=== PATIENT | male | born 1950 | race African-American/Black ===

== ENCOUNTER 2019-11-21 16:50 | Emergency (ER) | payer MEDICARE, OTHER ==
[~2019-11-21] VITALS: Ht 182.9 cm; Wt 54.4 kg
[2019-11-21 17:18] VITALS: BP 140/85
[2019-11-21] MEDS ORDERED: ACETAMINOPHEN 325 MG TAB PO ONE (17:45)
== END 2019-11-21 18:37 | disposition home or self-care (01) ==
LOC: EDBD 16:50 → ER 16:50
DX: R51 Headache (principal); I50.9 Heart failure, unspecified

== ENCOUNTER 2021-04-27 01:39 | Inpatient (IN) | payer MEDICARE, OTHER ==
[~2021-04-27] VITALS: Ht 190.5 cm; Wt 100.5 kg
[2021-04-27 02:34] LABS: Basophils # (auto) 0 10 ^3/uL (0-0.2); Basophils % (auto) 0.4 % (0.0-2.0); Eosinophils # (auto) 0 10 ^3/uL (0-0.8); Hematocrit 40.5 % (41.0-53.0); Hemoglobin 13.8 g/dL (13.5-17.5); Lymphocytes # (auto) 0.4 10 ^3/uL (0.4-5.4); Lymphocytes % (auto) 8.6 % (10.0-50.0); Mean Corpuscular Hemoglobin 29.1 pg (28.0-32.0); Mean Corpuscular Hgb Conc. 34.1 g/dL (32.0-36.0); Mean Corpuscular Volume 85.4 fL (80.0-100.0); Monocytes # (auto) 0.2 10 ^3/uL (0-1.3); Monocytes % (auto) 4.3 % (0.0-12.0); Neutrophils # (auto) 3.9 10 ^3/uL (1.6-8.6); Neutrophils % (auto) 86.7 % (37.0-80.0); Nucleated Red Blood Cells % 0.1 %; Red Blood Cells 4.74 10^6/uL (4.5-5.90); Red Cell Distribution Width 14.2 % (11.8-14.3); White Blood Cell 4.5 10^3/uL (4.4-10.8)
[2021-04-27 02:50] LABS: INR 1.37 (0.9-1.15); Partial Thromboplastin Time 29.9 sec (23.6-33.0)
[2021-04-27 02:52] LABS: Alanine Aminotransferase 61 U/L (16-61); Albumin 2.9 g/dL (3.4-5.0); Anion Gap 10 (5-15); Aspartate Aminotransferase 99 U/L (15-37); BUN/Creatinine Ratio 11.9; Blood Urea Nitrogen 19 mg/dL (7-18); Calcium 8.5 mg/dL (8.5-10.1); Carbon Dioxide 25 mmol/L (21-32); Chloride 103 mmol/L (98-107); GFR African American 56 mL/min; GFR Non-African American 46 mL/min; Glucose 163 mg/dL (74-106); Potassium 3.3 mmol/L (3.5-5.1); Sodium 138 mmol/L (136-145)
[2021-04-27 02:57] LABS: Alkaline Phosphatase 95 U/L (45-117); Bilirubin, Total 0.7 mg/dL (0.2-1.0); Total Protein 8.1 g/dL (6.4-8.2)
[2021-04-27 09:39] LABS: Urine Bacteria NONE SEEN /hpf (None Seen); Urine Blood 2+ /uL (Negative); Urine Hyaline Cast MOD /lpf (0 - 2); Urine Mucus FEW (None Seen); Urine Specific Gravity 1.024 (1.001-1.035); Urine WBC 7 /hpf (0 - 3)
[2021-04-27] MEDS ORDERED: ZINC SULFATE 220mg CAP or TAB PO ONE (11:15)
[2021-04-27] MEDS ORDERED: ASCORBIC ACID 500 MG TAB PO ONE (11:15)
[2021-04-27] MEDS ORDERED: cefTRIAXone 1GM/50ML D5W 50 ML IV ONE (11:15)
[2021-04-27] MEDS ORDERED: AZITHROMYCIN 500MG/ 250ML 250 ML IV ONE (11:15)
[2021-04-27] MEDS ORDERED: CHOLECALCIFEROL (VITD3) 2,000 UNIT CAP/TAB PO ONE (11:15)
[2021-04-27] MEDS ORDERED: DexAMETHasone SOD PHOS 10MG/1ML VIAL INJ IV ONE (11:15)
[2021-04-27] MEDS ORDERED: REMDESIVIR PER PHARMACY 0 ML IV SCH (11:30)
[2021-04-27] MEDS ORDERED: NITROGLYCERIN 0.4 MG SL TAB SL PRN (11:30)
[2021-04-27] MEDS ORDERED: diphenhdrAMINE HCL 50 MG/1 ML VL IV PRN (11:30)
[2021-04-27] MEDS ORDERED: MORPHINE SULFATE INJECTION 2 MG/ML SYRG IV PRN (11:30)
[2021-04-27] MEDS ORDERED: TEMAZEPAM 15 MG CAP PO PRN (11:45)
[2021-04-27] MEDS ORDERED: DEXTROSE (50%) 50ML SYRG IV PRN (11:45)
[2021-04-27] MEDS: ONDANSETRON HCL 4 MG/2 ML VIAL IV PRN (12:28)
[2021-04-27] MEDS: SODIUM CHLORIDE 0.9% 1,000 ML IV SCH (12:29)
[2021-04-27 13:20] VITALS: BP 108/61
[2021-04-27] MEDS ORDERED: METF-370 PO (13:59)
[2021-04-27] MEDS ORDERED: LORA0.5T20 PO (13:59)
[2021-04-27] MEDS ORDERED: TRAZ50TA2 PO (13:59)
[2021-04-27] MEDS ORDERED: METO25TA93 PO (13:59)
[2021-04-27] MEDS ORDERED: ALBU0.084 NEB (13:59)
[2021-04-27] MEDS ORDERED: DOCU100T15 PO (13:59)
[2021-04-27] MEDS ORDERED: LISI-275 PO (13:59)
[2021-04-27] MEDS ORDERED: REMDESIVIR 200 MG in NS 210ml LOADING DOSE ADULT IV ONE (15:00)
[2021-04-27 15:13] VITALS: BP 108/61
[2021-04-27 17:00] VITALS: BP 114/65
[2021-04-27] MEDS: InsuLIN REG 1unit/0.01ml Soln (100units/ml) SC SCH ×2 (17:37→22:10)
[2021-04-27] MEDS: ACCU-CHEK COMFORT CURVE STRIP VI SCH ×2 (17:39→22:01)
[2021-04-27] MEDS ORDERED: AMIODARONE HCL 150 MG in D5W 5% 100 ML IV ONE (18:15)
[2021-04-27] MEDS ORDERED: AMIODARONE 450mg/250ml AE 250 ML IV SCH (18:15)
[2021-04-27] MEDS: ALBUTEROL SULF HFA 90MCG INH 200DOSE IN PRN (21:34)
[2021-04-27] MEDS: BUDESONIDE (INHALATION) 180 MCG IH IN SCH (21:34)
[2021-04-27] MEDS ORDERED: FLORASTOR (S. BOULARDII) 250 MG CAP PO SCH (22:00)
[2021-04-27 22:11] VITALS: BP 112/73
[2021-04-27] MEDS: ENOXAPARIN SOD 40 MG/0.4 ML SYRINGE SC SCH (22:15)
[2021-04-27 22:58] VITALS: BP 116/64
[2021-04-27 23:24] VITALS: BP 115/72
[2021-04-28] VITALS (7 sets, daily range): BP systolic 100–119; BP diastolic 44–73
[2021-04-28] MEDS ORDERED: AMIODARONE 450mg/250ml AE 250 ML IV SCH (00:15)
[2021-04-28] MEDS: SODIUM CHLORIDE 0.9% 1,000 ML IV SCH (01:50)
[2021-04-28] MEDS: AMIODARONE 450mg/250ml AE 250 ML IV SCH ×2 (04:17→20:05)
[2021-04-28 05:51] LABS: Basophils # (auto) 0 10 ^3/uL (0-0.2); Basophils % (auto) 0.1 % (0.0-2.0); Eosinophils # (auto) 0 10 ^3/uL (0-0.8); Hematocrit 37.5 % (41.0-53.0); Lymphocytes # (auto) 0.5 10 ^3/uL (0.4-5.4); Lymphocytes % (auto) 12.3 % (10.0-50.0); Mean Corpuscular Hemoglobin 29.5 pg (28.0-32.0); Mean Corpuscular Hgb Conc. 34.7 g/dL (32.0-36.0); Mean Corpuscular Volume 85.3 fL (80.0-100.0); Monocytes # (auto) 0.2 10 ^3/uL (0-1.3); Monocytes % (auto) 5.1 % (0.0-12.0); Neutrophils # (auto) 3.2 10 ^3/uL (1.6-8.6); Neutrophils % (auto) 82.5 % (37.0-80.0); Red Cell Distribution Width 14.3 % (11.8-14.3); White Blood Cell 3.9 10^3/uL (4.4-10.8)
[2021-04-28 06:20] LABS: Albumin 2.4 g/dL (3.4-5.0); BUN/Creatinine Ratio 17.5; Calcium 8.8 mg/dL (8.5-10.1); Potassium 3.6 mmol/L (3.5-5.1)
[2021-04-28] MEDS: ACCU-CHEK COMFORT CURVE STRIP VI SCH ×4 (06:26→21:48)
[2021-04-28] MEDS: InsuLIN REG 1unit/0.01ml Soln (100units/ml) SC SCH ×4 (06:26→21:48)
[2021-04-28 06:32] LABS: Bilirubin, Total 0.5 mg/dL (0.2-1.0); Total Protein 7.5 g/dL (6.4-8.2)
[2021-04-28] MEDS: BUDESONIDE (INHALATION) 180 MCG IH IN SCH ×2 (06:38→20:31)
[2021-04-28] MEDS: ALBUTEROL SULF HFA 90MCG INH 200DOSE IN PRN (06:38)
[2021-04-28] MEDS: ASCORBIC ACID 1,000 MG TAB PO SCH (10:00)
[2021-04-28] MEDS: ZINC SULFATE 220mg CAP or TAB PO SCH (10:00)
[2021-04-28] MEDS: CHOLECALCIFEROL (VITD3) 2,000 UNIT CAP/TAB PO SCH (10:00)
[2021-04-28] MEDS: IVERMECTIN 3 MG TAB PO SCH (10:00)
[2021-04-28] MEDS: DexAMETHasone SOD PHOS 10MG/1ML VIAL INJ IV SCH (10:11)
[2021-04-28] MEDS: cefTRIAXone 1GM/50ML D5W 50 ML IV SCH (10:11)
[2021-04-28] MEDS: ENOXAPARIN SOD 40 MG/0.4 ML SYRINGE SC SCH ×2 (10:14→21:48)
[2021-04-28] MEDS: AZITHROMYCIN 500MG/ 250ML 250 ML IV SCH (11:42)
[2021-04-28] MEDS ORDERED: FUROSEMIDE 40 MG/4 ML VIAL IV ONE (11:45)
[2021-04-28] MEDS ORDERED: POTASSIUM CHLORIDE 20 MEQ, LIDOCAINE 1% (LOCAL ANESTH.) 2 ML in SODIUM CHL 0.9% 100 ML IV ONE (11:45)
[2021-04-28] MEDS ORDERED: FUROSEMIDE 20 MG/2 ML VIAL IV ONE (12:45)
[2021-04-28] MEDS: LORazepam 2MG/ML-1ML VIAL IV PRN (15:50)
[2021-04-28] MEDS: REMDESIVIR 100mg 100 MG in SODIUM CHL 0.9% 230 ML IV SCH (16:21)
[2021-04-28 19:21] LABS: Amphetamine Screen, Urine NEGATIVE (NEGATIVE); Barbiturate Scree,Urine NEGATIVE (NEGATIVE); Benzodiazephine Screen, Urine NEGATIVE (NEGATIVE); Cannabinoid Screen, Urine NEGATIVE (NEGATIVE); Cocaine Screen, Urine NEGATIVE (NEGATIVE); Opiate Scree,Urine NEGATIVE (NEGATIVE); Phencyclidine Screen, Urine NEGATIVE (NEGATIVE)
[2021-04-29 05:00] VITALS: BP 114/72
[2021-04-29] MEDS: InsuLIN REG 1unit/0.01ml Soln (100units/ml) SC SCH ×4 (06:16→21:31)
[2021-04-29] MEDS: ACCU-CHEK COMFORT CURVE STRIP VI SCH ×4 (06:17→21:31)
[2021-04-29] MEDS: ALBUTEROL SULF HFA 90MCG INH 200DOSE IN PRN ×2 (06:42→21:22)
[2021-04-29] MEDS: BUDESONIDE (INHALATION) 180 MCG IH IN SCH ×2 (06:42→21:22)
[2021-04-29 07:11] LABS: Potassium 3.5 mmol/L (3.5-5.1)
[2021-04-29 07:16] LABS: Albumin 2.6 g/dL (3.4-5.0); BUN/Creatinine Ratio 21.9; Calcium 9.1 mg/dL (8.5-10.1)
[2021-04-29 07:21] LABS: Bilirubin, Total 0.6 mg/dL (0.2-1.0); Total Protein 7.9 g/dL (6.4-8.2)
[2021-04-29] MEDS: ONDANSETRON HCL 4 MG/2 ML VIAL IV PRN (07:31)
[2021-04-29 09:00] VITALS: BP 117/84
[2021-04-29] MEDS: cefTRIAXone 1GM/50ML D5W 50 ML IV SCH (09:51)
[2021-04-29] MEDS: FUROSEMIDE 20 MG/2 ML VIAL IV SCH (09:52)
[2021-04-29] MEDS: ZINC SULFATE 220mg CAP or TAB PO SCH (10:00)
[2021-04-29] MEDS: ASCORBIC ACID 1,000 MG TAB PO SCH (10:00)
[2021-04-29] MEDS: CHOLECALCIFEROL (VITD3) 2,000 UNIT CAP/TAB PO SCH (10:00)
[2021-04-29] MEDS ORDERED: POTASSIUM CHL 10 Meq TABLET PO SCH (10:00)
[2021-04-29] MEDS: IVERMECTIN 3 MG TAB PO SCH (10:00)
[2021-04-29] MEDS ORDERED: AMIODARONE HCL 200 MG TAB PO ONE (10:30)
[2021-04-29] MEDS: DexAMETHasone SOD PHOS 10MG/1ML VIAL INJ IV SCH (11:09)
[2021-04-29] MEDS: AZITHROMYCIN 500MG/ 250ML 250 ML IV SCH (11:09)
[2021-04-29 13:00] VITALS: BP 138/71
[2021-04-29] MEDS: REMDESIVIR 100mg 100 MG in SODIUM CHL 0.9% 230 ML IV SCH (15:17)
[2021-04-29 16:57] VITALS: BP 121/67
[2021-04-29] MEDS: AMIODARONE HCL 200 MG TAB PO SCH (21:27)
[2021-04-29] MEDS: traZODone HCL 50 MG TAB PO SCH (21:30)
[2021-04-29] MEDS: CARVEDILOL 3.125 MG TAB PO SCH (21:30)
[2021-04-29] MEDS: APIXABAN 5 MG TAB PO SCH (21:31)
[2021-04-29 22:00] VITALS: BP 125/65
[2021-04-30] MEDS: LORazepam 2MG/ML-1ML VIAL IV PRN ×2 (01:42→21:43)
[2021-04-30 05:00] VITALS: BP 139/68
[2021-04-30 06:21] LABS: Albumin 2.6 g/dL (3.4-5.0); Calcium 8.6 mg/dL (8.5-10.1); Potassium 3.3 mmol/L (3.5-5.1)
[2021-04-30 06:23] LABS: BUN/Creatinine Ratio 21.1
[2021-04-30] MEDS: ALBUTEROL SULF HFA 90MCG INH 200DOSE IN PRN ×2 (06:23→21:30)
[2021-04-30] MEDS: BUDESONIDE (INHALATION) 180 MCG IH IN SCH ×2 (06:23→21:29)
[2021-04-30 06:26] LABS: Bilirubin, Total 0.7 mg/dL (0.2-1.0); Total Protein 7.9 g/dL (6.4-8.2)
[2021-04-30] MEDS: InsuLIN REG 1unit/0.01ml Soln (100units/ml) SC SCH ×4 (06:44→21:39)
[2021-04-30] MEDS: ACCU-CHEK COMFORT CURVE STRIP VI SCH ×4 (06:44→21:37)
[2021-04-30 09:00] VITALS: BP 133/54
[2021-04-30] MEDS: cefTRIAXone 1GM/50ML D5W 50 ML IV SCH (09:56)
[2021-04-30] MEDS: AZITHROMYCIN 500MG/ 250ML 250 ML IV SCH (09:56)
[2021-04-30] MEDS: DexAMETHasone SOD PHOS 10MG/1ML VIAL INJ IV SCH (09:56)
[2021-04-30] MEDS: POTASSIUM CHL 20 Meq TABLET PO SCH (09:57)
[2021-04-30] MEDS: CHOLECALCIFEROL (VITD3) 2,000 UNIT CAP/TAB PO SCH (09:57)
[2021-04-30] MEDS: APIXABAN 5 MG TAB PO SCH ×2 (09:57→21:36)
[2021-04-30] MEDS: IVERMECTIN 3 MG TAB PO SCH (09:57)
[2021-04-30] MEDS: AMIODARONE HCL 200 MG TAB PO SCH ×2 (09:57→21:37)
[2021-04-30] MEDS: ZINC SULFATE 220mg CAP or TAB PO SCH (09:57)
[2021-04-30] MEDS: ASCORBIC ACID 1,000 MG TAB PO SCH (09:57)
[2021-04-30] MEDS: CARVEDILOL 3.125 MG TAB PO SCH ×2 (10:00→21:37)
[2021-04-30] MEDS: FUROSEMIDE 20 MG/2 ML VIAL IV SCH (10:00)
[2021-04-30] MEDS: LISINOPRIL 5 MG TAB PO SCH (10:00)
[2021-04-30 13:00] VITALS: BP 124/74
[2021-04-30] MEDS: REMDESIVIR 100mg 100 MG in SODIUM CHL 0.9% 230 ML IV SCH (15:00)
[2021-04-30] MEDS: Ensure Enlive Strawberry 8oz Bottle PO SCH (16:18)
[2021-04-30] MEDS: Glucerna Carbsteady SHAKE Stawberry 8oz PO SCH (16:51)
[2021-04-30] MEDS: traZODone HCL 50 MG TAB PO SCH (21:37)
[2021-04-30 22:00] VITALS: BP 144/70
[2021-04-30] MEDS ORDERED: TOCILIZUMAB 400 MG in SODIUM CHL 0.9% 80 ML IV SCH (22:00)
[2021-05-01] VITALS (16 sets, daily range): BP systolic 114–155; BP diastolic 53–85
[2021-05-01] MEDS: InsuLIN REG 1unit/0.01ml Soln (100units/ml) SC SCH ×4 (06:29→22:30)
[2021-05-01] MEDS: ACCU-CHEK COMFORT CURVE STRIP VI SCH ×4 (06:30→22:30)
[2021-05-01 06:59] LABS: Potassium 3.6 mmol/L (3.5-5.1)
[2021-05-01 07:20] LABS: Albumin 2.4 g/dL (3.4-5.0); BUN/Creatinine Ratio 24.3; Bilirubin, Total 0.7 mg/dL (0.2-1.0); Calcium 8.6 mg/dL (8.5-10.1); Total Protein 7.5 g/dL (6.4-8.2)
[2021-05-01] MEDS: Glucerna Carbsteady SHAKE Stawberry 8oz PO SCH ×3 (08:00→18:00)
[2021-05-01] MEDS: Ensure Enlive Strawberry 8oz Bottle PO SCH ×3 (08:00→16:20)
[2021-05-01] MEDS: cefTRIAXone 1GM/50ML D5W 50 ML IV SCH (09:11)
[2021-05-01] MEDS: AZITHROMYCIN 500MG/ 250ML 250 ML IV SCH (09:11)
[2021-05-01] MEDS: ZINC SULFATE 220mg CAP or TAB PO SCH (09:11)
[2021-05-01] MEDS: AMIODARONE HCL 200 MG TAB PO SCH ×2 (09:11→22:29)
[2021-05-01] MEDS: DexAMETHasone SOD PHOS 10MG/1ML VIAL INJ IV SCH (09:11)
[2021-05-01] MEDS: BUDESONIDE (INHALATION) 180 MCG IH IN SCH ×2 (09:48→18:09)
[2021-05-01] MEDS: LISINOPRIL 5 MG TAB PO SCH (10:00)
[2021-05-01] MEDS: FUROSEMIDE 40 MG/4 ML VIAL IV SCH (10:00)
[2021-05-01] MEDS: APIXABAN 5 MG TAB PO SCH ×2 (10:00→22:30)
[2021-05-01] MEDS: CHOLECALCIFEROL (VITD3) 2,000 UNIT CAP/TAB PO SCH (10:00)
[2021-05-01] MEDS: ASCORBIC ACID 1,000 MG TAB PO SCH (10:00)
[2021-05-01] MEDS: IVERMECTIN 3 MG TAB PO SCH (10:00)
[2021-05-01] MEDS: POTASSIUM CHL 20 Meq TABLET PO SCH (10:00)
[2021-05-01] MEDS: CARVEDILOL 3.125 MG TAB PO SCH ×2 (10:00→22:29)
[2021-05-01] MEDS: LORazepam 2MG/ML-1ML VIAL IV PRN ×2 (14:27→22:30)
[2021-05-01] MEDS: REMDESIVIR 100mg 100 MG in SODIUM CHL 0.9% 230 ML IV SCH (14:29)
[2021-05-01] MEDS: ALBUTEROL SULF HFA 90MCG INH 200DOSE IN PRN (18:09)
[2021-05-01] MEDS: traZODone HCL 50 MG TAB PO SCH (22:30)
[2021-05-02] VITALS (31 sets, daily range): BP systolic 94–156; BP diastolic 56–97
[2021-05-02 05:43] LABS: BUN/Creatinine Ratio 24.4; Calcium 8.9 mg/dL (8.5-10.1); Potassium 3.8 mmol/L (3.5-5.1)
[2021-05-02] MEDS: ALBUTEROL SULF HFA 90MCG INH 200DOSE IN PRN ×2 (06:19→22:38)
[2021-05-02] MEDS: BUDESONIDE (INHALATION) 180 MCG IH IN SCH ×2 (06:20→22:38)
[2021-05-02] MEDS: ACCU-CHEK COMFORT CURVE STRIP VI SCH ×4 (06:25→23:22)
[2021-05-02] MEDS: InsuLIN REG 1unit/0.01ml Soln (100units/ml) SC SCH ×4 (06:37→23:23)
[2021-05-02] MEDS: Glucerna Carbsteady SHAKE Stawberry 8oz PO SCH ×3 (08:00→17:18)
[2021-05-02] MEDS: LISINOPRIL 5 MG TAB PO SCH (10:00)
[2021-05-02] MEDS: CARVEDILOL 3.125 MG TAB PO SCH ×2 (10:00→22:47)
[2021-05-02] MEDS: POTASSIUM CHL 20 Meq TABLET PO SCH (10:00)
[2021-05-02] MEDS: HYDROcodone-ACET 5/325MG TAB PO PRN ×2 (10:30→22:48)
[2021-05-02] MEDS: DexAMETHasone SOD PHOS 10MG/1ML VIAL INJ IV SCH (10:47)
[2021-05-02] MEDS: FUROSEMIDE 40 MG/4 ML VIAL IV SCH (10:48)
[2021-05-02] MEDS: APIXABAN 5 MG TAB PO SCH ×2 (10:48→22:47)
[2021-05-02] MEDS: ZINC SULFATE 220mg CAP or TAB PO SCH (10:48)
[2021-05-02] MEDS: AMIODARONE HCL 200 MG TAB PO SCH ×2 (10:48→22:46)
[2021-05-02] MEDS: ASCORBIC ACID 1,000 MG TAB PO SCH (10:49)
[2021-05-02] MEDS: CHOLECALCIFEROL (VITD3) 2,000 UNIT CAP/TAB PO SCH (10:49)
[2021-05-02] MEDS: cefTRIAXone 1GM/50ML D5W 50 ML IV SCH (11:45)
[2021-05-02] MEDS: AZITHROMYCIN 500MG/ 250ML 250 ML IV SCH (12:58)
[2021-05-02] MEDS: IVERMECTIN 3 MG TAB PO SCH (14:05)
[2021-05-02] MEDS: LORazepam 2MG/ML-1ML VIAL IV PRN (14:51)
[2021-05-02] MEDS ORDERED: TOCILIZUMAB 400 MG in SODIUM CHL 0.9% 80 ML IV ONE (15:00)
[2021-05-02] MEDS: DOCUSATE SOD 100 MG CAP PO SCH (22:46)
[2021-05-02] MEDS: traZODone HCL 50 MG TAB PO SCH (22:47)
[2021-05-03] VITALS (55 sets, daily range): BP systolic 83–148; BP diastolic 53–86
[2021-05-03 06:46] LABS: Basophils # (auto) 0 10 ^3/uL (0-0.2); Basophils % (auto) 0.5 % (0.0-2.0); Eosinophils # (auto) 0 10 ^3/uL (0-0.8); Eosinophils % (auto) 0.1 % (0.0-7.0); Hematocrit 41.3 % (41.0-53.0); Hemoglobin 13.9 g/dL (13.5-17.5); Lymphocytes # (auto) 0.4 10 ^3/uL (0.4-5.4); Lymphocytes % (auto) 5.1 % (10.0-50.0); Mean Corpuscular Hemoglobin 28.9 pg (28.0-32.0); Mean Corpuscular Hgb Conc. 33.7 g/dL (32.0-36.0); Mean Corpuscular Volume 85.6 fL (80.0-100.0); Monocytes # (auto) 0.2 10 ^3/uL (0-1.3); Monocytes % (auto) 1.9 % (0.0-12.0); Neutrophils # (auto) 7.6 10 ^3/uL (1.6-8.6); Neutrophils % (auto) 92.4 % (37.0-80.0); Nucleated Red Blood Cells % 0.1 %; Red Blood Cells 4.82 10^6/uL (4.5-5.90); Red Cell Distribution Width 14.3 % (11.8-14.3); White Blood Cell 8.2 10^3/uL (4.4-10.8)
[2021-05-03 06:51] LABS: Calcium 8.2 mg/dL (8.5-10.1); Potassium 3.9 mmol/L (3.5-5.1)
[2021-05-03] MEDS: InsuLIN REG 1unit/0.01ml Soln (100units/ml) SC SCH ×3 (06:59→17:00)
[2021-05-03] MEDS: ACCU-CHEK COMFORT CURVE STRIP VI SCH ×3 (06:59→17:00)
[2021-05-03 07:00] LABS: BUN/Creatinine Ratio 29.4; CRP High Sensitivity 6.35 mg/dL (< 0.3)
[2021-05-03] MEDS: Glucerna Carbsteady SHAKE Stawberry 8oz PO SCH ×3 (08:00→18:00)
[2021-05-03] MEDS: PROPOFOL 100 ML IV SCH (09:00)
[2021-05-03] MEDS ORDERED: ETOMIDATE (2MG/ML) 20ML VIAL IV ONE ×2 (09:00→09:11)
[2021-05-03] MEDS: cefTRIAXone 1GM/50ML D5W 50 ML IV SCH (09:00)
[2021-05-03] MEDS ORDERED: ROCURONIUM 10MG/ML 10ML VIAL IV ONE ×2 (09:00→09:11)
[2021-05-03] MEDS: DOCUSATE SOD 100 MG CAP PO SCH ×2 (10:00→22:00)
[2021-05-03] MEDS: POTASSIUM CHL 20 Meq TABLET PO SCH (10:00)
[2021-05-03] MEDS: APIXABAN 5 MG TAB PO SCH ×2 (10:00→23:13)
[2021-05-03] MEDS: CHOLECALCIFEROL (VITD3) 2,000 UNIT CAP/TAB PO SCH (10:00)
[2021-05-03] MEDS: ASCORBIC ACID 1,000 MG TAB PO SCH (10:00)
[2021-05-03] MEDS: AMIODARONE HCL 200 MG TAB PO SCH ×2 (10:00→23:11)
[2021-05-03] MEDS: LISINOPRIL 5 MG TAB PO SCH (10:00)
[2021-05-03] MEDS: CARVEDILOL 3.125 MG TAB PO SCH ×2 (10:00→22:00)
[2021-05-03] MEDS ORDERED: TOCILIZUMAB 400 MG in SODIUM CHL 0.9% 80 ML IV ONE (10:00)
[2021-05-03] MEDS: NOREPINEPHRINE 8 MG/250ML KIT 250 ML IV SCH (10:15)
[2021-05-03] MEDS: fentaNYL Drip 2500mCg/250mlNS 250 ML IV SCH ×2 (10:15→20:09)
[2021-05-03] MEDS: MIDAZOLAM DRIP 50 mg/50mL 50 ML IV SCH (10:15)
[2021-05-03] MEDS: FUROSEMIDE 40 MG/4 ML VIAL IV SCH (12:35)
[2021-05-03] MEDS: DexAMETHasone SOD PHOS 10MG/1ML VIAL INJ IV SCH (12:35)
[2021-05-03] MEDS: ZINC SULFATE 220mg CAP or TAB PO SCH (12:36)
[2021-05-03] MEDS: traZODone HCL 50 MG TAB PO SCH (22:00)
[2021-05-04] VITALS (97 sets, daily range): BP systolic 89–181; BP diastolic 61–99
[2021-05-04] MEDS: InsuLIN REG 1unit/0.01ml Soln (100units/ml) SC SCH ×5 (01:04→22:00)
[2021-05-04] MEDS: ACCU-CHEK COMFORT CURVE STRIP VI SCH ×5 (01:05→22:00)
[2021-05-04] MEDS: DOPamine 1600MCG/ML D5W 250 ML IV SCH ×3 (02:06→18:13)
[2021-05-04 06:31] LABS: BUN/Creatinine Ratio 35.4; Calcium 8.3 mg/dL (8.5-10.1); Potassium 4.5 mmol/L (3.5-5.1)
[2021-05-04 06:33] LABS: Basophils # (auto) 0 10 ^3/uL (0-0.2); Basophils % (auto) 0.2 % (0.0-2.0); Eosinophils # (auto) 0 10 ^3/uL (0-0.8); Eosinophils % (auto) 0.1 % (0.0-7.0); Hematocrit 44.7 % (41.0-53.0); Hemoglobin 14.6 g/dL (13.5-17.5); Lymphocytes # (auto) 0.4 10 ^3/uL (0.4-5.4); Lymphocytes % (auto) 5.7 % (10.0-50.0); Mean Corpuscular Hemoglobin 28.1 pg (28.0-32.0); Mean Corpuscular Hgb Conc. 32.7 g/dL (32.0-36.0); Mean Corpuscular Volume 85.9 fL (80.0-100.0); Monocytes # (auto) 0.1 10 ^3/uL (0-1.3); Monocytes % (auto) 1.9 % (0.0-12.0); Neutrophils # (auto) 6.4 10 ^3/uL (1.6-8.6); Neutrophils % (auto) 92.1 % (37.0-80.0); Nucleated Red Blood Cells % 0.1 %; Red Blood Cells 5.21 10^6/uL (4.5-5.90); Red Cell Distribution Width 14.8 % (11.8-14.3)
[2021-05-04] MEDS: Glucerna Carbsteady SHAKE Stawberry 8oz PO SCH ×3 (08:00→16:00)
[2021-05-04] MEDS: MIDAZOLAM DRIP 50 mg/50mL 50 ML IV SCH (08:01)
[2021-05-04] MEDS: PROPOFOL 100 ML IV SCH (09:00)
[2021-05-04] MEDS: NOREPINEPHRINE 8 MG/250ML KIT 250 ML IV SCH (09:00)
[2021-05-04] MEDS: CARVEDILOL 3.125 MG TAB PO SCH ×2 (09:05→22:00)
[2021-05-04] MEDS: LISINOPRIL 5 MG TAB PO SCH (09:06)
[2021-05-04] MEDS: cefTRIAXone 1GM/50ML D5W 50 ML IV SCH (09:15)
[2021-05-04] MEDS: DOCUSATE SOD 100 MG CAP PO SCH (09:15)
[2021-05-04] MEDS: DexAMETHasone SOD PHOS 10MG/1ML VIAL INJ IV SCH (09:52)
[2021-05-04] MEDS: AMIODARONE HCL 200 MG TAB PO SCH ×2 (09:53→22:00)
[2021-05-04] MEDS: APIXABAN 5 MG TAB PO SCH ×2 (09:53→22:00)
[2021-05-04] MEDS: ZINC SULFATE 220mg CAP or TAB PO SCH (09:53)
[2021-05-04] MEDS: FUROSEMIDE 40 MG/4 ML VIAL IV SCH (09:53)
[2021-05-04] MEDS: ASCORBIC ACID 1,000 MG TAB PO SCH (09:54)
[2021-05-04] MEDS: CHOLECALCIFEROL (VITD3) 2,000 UNIT CAP/TAB PO SCH (09:54)
[2021-05-04] MEDS: POTASSIUM CHL 20 Meq TABLET PO SCH (09:54)
[2021-05-04] MEDS: SODIUM CHLORIDE 0.9% 1,000 ML IV SCH (10:32)
[2021-05-04] MEDS: fentaNYL Drip 2500mCg/250mlNS 250 ML IV SCH (11:35)
[2021-05-04] MEDS: traZODone HCL 50 MG TAB PO SCH (22:00)
[2021-05-05] VITALS (95 sets, daily range): BP systolic 105–183; BP diastolic 63–92
[2021-05-05] MEDS: DOCUSATE SOD 100 MG CAP PO SCH ×3 (01:20→19:50)
[2021-05-05] MEDS: SODIUM CHLORIDE 0.9% 1,000 ML IV SCH (01:24)
[2021-05-05] MEDS: DOPamine 1600MCG/ML D5W 250 ML IV SCH ×3 (01:59→17:48)
[2021-05-05] MEDS: fentaNYL Drip 2500mCg/250mlNS 250 ML IV SCH (02:02)
[2021-05-05 06:36] LABS: Hematocrit 44.4 % (41.0-53.0); Mean Corpuscular Hemoglobin 29.4 pg (28.0-32.0); Mean Corpuscular Hgb Conc. 33.8 g/dL (32.0-36.0); Mean Corpuscular Volume 86.8 fL (80.0-100.0); Red Blood Cells 5.11 10^6/uL (4.5-5.90); Red Cell Distribution Width 14.7 % (11.8-14.3); White Blood Cell 8.3 10^3/uL (4.4-10.8)
[2021-05-05 06:51] LABS: Potassium 4.6 mmol/L (3.5-5.1)
[2021-05-05 06:57] LABS: Band Neutrophils % (manual) 0; Basophils % (manual) 0 (0.0-2.0); Blast Cells 0; Eosinophils % (manual) 0 (0-7); Metamyelocytes % 0; Monocytes % (manual) 0 (0-12); Myelocytes % 0; Promyelocytes % 0; Reactive Lymphocytes 0
[2021-05-05 07:06] LABS: Albumin 2.4 g/dL (3.4-5.0); BUN/Creatinine Ratio 33.3; Bilirubin, Total 0.5 mg/dL (0.2-1.0); Calcium 8.1 mg/dL (8.5-10.1); Total Protein 7.1 g/dL (6.4-8.2)
[2021-05-05] MEDS: ACCU-CHEK COMFORT CURVE STRIP VI SCH ×4 (07:43→23:32)
[2021-05-05] MEDS: InsuLIN REG 1unit/0.01ml Soln (100units/ml) SC SCH ×4 (07:44→23:34)
[2021-05-05] MEDS: Glucerna Carbsteady SHAKE Stawberry 8oz PO SCH ×2 (08:00→10:08)
[2021-05-05 08:43] LABS: Lymphocytes % (manual) 4 (10.0-50.0)
[2021-05-05] MEDS: NOREPINEPHRINE 8 MG/250ML KIT 250 ML IV SCH (09:00)
[2021-05-05] MEDS: PROPOFOL 100 ML IV SCH (09:00)
[2021-05-05] MEDS: MIDAZOLAM DRIP 50 mg/50mL 50 ML IV SCH (09:08)
[2021-05-05] MEDS: CARVEDILOL 3.125 MG TAB PO SCH (09:12)
[2021-05-05] MEDS: LISINOPRIL 5 MG TAB PO SCH (09:12)
[2021-05-05] MEDS: AMIODARONE HCL 200 MG TAB PO SCH (09:12)
[2021-05-05] MEDS ORDERED: POTASSIUM EFFERVESENT TAB 25 MEQ GT SCH (10:00)
[2021-05-05] MEDS: cefTRIAXone 1GM/50ML D5W 50 ML IV SCH (10:05)
[2021-05-05] MEDS: ASCORBIC ACID 1,000 MG TAB PO SCH (10:06)
[2021-05-05] MEDS: CHOLECALCIFEROL (VITD3) 2,000 UNIT CAP/TAB PO SCH (10:06)
[2021-05-05] MEDS: DexAMETHasone SOD PHOS 10MG/1ML VIAL INJ IV SCH (10:06)
[2021-05-05] MEDS: APIXABAN 5 MG TAB PO SCH ×2 (10:06→22:00)
[2021-05-05] MEDS: ZINC SULFATE 220mg CAP or TAB PO SCH (10:06)
[2021-05-05] MEDS: Glucerna 1.2 Cal 1Liter BOTTLE GT SCH (17:47)
[2021-05-05] MEDS: traZODone HCL 50 MG TAB PO SCH (22:00)
[2021-05-06] VITALS (100 sets, daily range): BP systolic 84–157; BP diastolic 51–97
[2021-05-06] MEDS: DOPamine 1600MCG/ML D5W 250 ML IV SCH ×2 (02:00→10:10)
[2021-05-06] MEDS: InsuLIN REG 1unit/0.01ml Soln (100units/ml) SC SCH ×4 (06:00→23:17)
[2021-05-06] MEDS: ACCU-CHEK COMFORT CURVE STRIP VI SCH ×4 (06:00→23:15)
[2021-05-06] MEDS: fentaNYL Drip 2500mCg/250mlNS 250 ML IV SCH ×2 (06:51→16:43)
[2021-05-06] MEDS: MIDAZOLAM DRIP 50 mg/50mL 50 ML IV SCH ×3 (06:51→14:04)
[2021-05-06] MEDS: NOREPINEPHRINE 8 MG/250ML KIT 250 ML IV SCH (08:51)
[2021-05-06] MEDS: PROPOFOL 100 ML IV SCH (08:51)
[2021-05-06] MEDS: ZINC SULFATE 220mg CAP or TAB PO SCH (09:22)
[2021-05-06] MEDS: CHOLECALCIFEROL (VITD3) 2,000 UNIT CAP/TAB PO SCH (09:22)
[2021-05-06] MEDS: DexAMETHasone SOD PHOS 10MG/1ML VIAL INJ IV SCH (09:23)
[2021-05-06] MEDS: DOCUSATE SOD 100 MG CAP PO SCH ×2 (09:23→19:32)
[2021-05-06] MEDS: APIXABAN 5 MG TAB PO SCH ×2 (09:23→20:54)
[2021-05-06] MEDS: ASCORBIC ACID 1,000 MG TAB PO SCH (09:23)
[2021-05-06] MEDS ORDERED: METOCLOPRAMIDE HCL 5MG/ml INJ 2ml VIAL ONE (13:56)
[2021-05-06] MEDS: METOCLOPRAMIDE HCL 5MG/ml INJ 2ml VIAL IV SCH ×2 (14:00→20:54)
[2021-05-06] MEDS: traZODone HCL 50 MG TAB PO SCH (20:54)
[2021-05-07] VITALS (98 sets, daily range): BP systolic 89–151; BP diastolic 37–80
[2021-05-07 05:15] LABS: Basophils # (auto) 0 10 ^3/uL (0-0.2); Basophils % (auto) 0.3 % (0.0-2.0); Eosinophils # (auto) 0 10 ^3/uL (0-0.8); Eosinophils % (auto) 0.1 % (0.0-7.0); Hematocrit 43.8 % (41.0-53.0); Hemoglobin 14.4 g/dL (13.5-17.5); Lymphocytes # (auto) 0.3 10 ^3/uL (0.4-5.4); Lymphocytes % (auto) 4.6 % (10.0-50.0); Mean Corpuscular Hemoglobin 28.2 pg (28.0-32.0); Mean Corpuscular Hgb Conc. 32.9 g/dL (32.0-36.0); Mean Corpuscular Volume 85.7 fL (80.0-100.0); Monocytes # (auto) 0.2 10 ^3/uL (0-1.3); Monocytes % (auto) 3.1 % (0.0-12.0); Neutrophils # (auto) 6.5 10 ^3/uL (1.6-8.6); Neutrophils % (auto) 91.9 % (37.0-80.0); Nucleated Red Blood Cells % 0.1 %; Red Blood Cells 5.11 10^6/uL (4.5-5.90); Red Cell Distribution Width 14.4 % (11.8-14.3); White Blood Cell 7.1 10^3/uL (4.4-10.8)
[2021-05-07] MEDS: ACCU-CHEK COMFORT CURVE STRIP VI SCH ×4 (05:39→23:11)
[2021-05-07 05:40] LABS: BUN/Creatinine Ratio 38.9; Calcium 8.1 mg/dL (8.5-10.1); Potassium 4.8 mmol/L (3.5-5.1)
[2021-05-07] MEDS: InsuLIN REG 1unit/0.01ml Soln (100units/ml) SC SCH ×4 (06:03→23:25)
[2021-05-07] MEDS: fentaNYL Drip 2500mCg/250mlNS 250 ML IV SCH ×2 (06:04→18:39)
[2021-05-07] MEDS: METOCLOPRAMIDE HCL 5MG/ml INJ 2ml VIAL IV SCH ×3 (06:04→22:00)
[2021-05-07] MEDS: PROPOFOL 100 ML IV SCH ×2 (09:00→22:00)
[2021-05-07] MEDS: NOREPINEPHRINE 8 MG/250ML KIT 250 ML IV SCH (09:00)
[2021-05-07] MEDS: MIDAZOLAM DRIP 50 mg/50mL 50 ML IV SCH ×2 (09:09→16:16)
[2021-05-07] MEDS: DOCUSATE SOD 100 MG CAP PO SCH (10:00)
[2021-05-07] MEDS: DexAMETHasone SOD PHOS 10MG/1ML VIAL INJ IV SCH (10:12)
[2021-05-07] MEDS: ZINC SULFATE 220mg CAP or TAB PO SCH (10:12)
[2021-05-07] MEDS: APIXABAN 5 MG TAB PO SCH ×2 (10:13→22:00)
[2021-05-07] MEDS: CHOLECALCIFEROL (VITD3) 2,000 UNIT CAP/TAB PO SCH (10:13)
[2021-05-07] MEDS: ASCORBIC ACID 1,000 MG TAB PO SCH (10:13)
[2021-05-07] MEDS ORDERED: PANTOPRAZOLE 40 MG/10 ML VIAL INJ IV ONE (10:15)
[2021-05-07] MEDS: DOPamine 1600MCG/ML D5W 250 ML IV SCH ×2 (11:00→18:24)
[2021-05-07] MEDS: Glucerna 1.2 Cal 1Liter BOTTLE GT SCH (18:56)
[2021-05-07] MEDS ORDERED: INSULIN LANTUS (GLARGINE) 1 /0.01ml (100units/ml) SC SCH (22:00)
[2021-05-07] MEDS: DOCUSATE ORAL LIQUID 100 MG/10 ML UD GT SCH (22:00)
[2021-05-07] MEDS: traZODone HCL 50 MG TAB PO SCH (22:00)
[2021-05-08] VITALS (98 sets, daily range): BP systolic 87–118; BP diastolic 54–71
[2021-05-08] MEDS: METOCLOPRAMIDE HCL 5MG/ml INJ 2ml VIAL IV SCH ×3 (06:22→21:12)
[2021-05-08] MEDS: ACCU-CHEK COMFORT CURVE STRIP VI SCH ×4 (06:22→23:28)
[2021-05-08] MEDS: InsuLIN REG 1unit/0.01ml Soln (100units/ml) SC SCH ×4 (06:24→23:29)
[2021-05-08] MEDS: NOREPINEPHRINE 8 MG/250ML KIT 250 ML IV SCH (09:00)
[2021-05-08] MEDS: MIDAZOLAM DRIP 50 mg/50mL 50 ML IV SCH ×3 (09:29→18:31)
[2021-05-08] MEDS: PROPOFOL 100 ML IV SCH ×2 (09:30→18:32)
[2021-05-08] MEDS: CHOLECALCIFEROL (VITD3) 2,000 UNIT CAP/TAB PO SCH (09:31)
[2021-05-08] MEDS: DOCUSATE ORAL LIQUID 100 MG/10 ML UD GT SCH ×2 (09:31→21:12)
[2021-05-08] MEDS: APIXABAN 5 MG TAB PO SCH ×2 (09:31→21:12)
[2021-05-08] MEDS: ASCORBIC ACID 1,000 MG TAB PO SCH (09:31)
[2021-05-08] MEDS: ZINC SULFATE 220mg CAP or TAB PO SCH (09:31)
[2021-05-08] MEDS: DexAMETHasone SOD PHOS 10MG/1ML VIAL INJ IV SCH (09:32)
[2021-05-08] MEDS: PANTOPRAZOLE 40 MG/10 ML VIAL INJ IV SCH (09:32)
[2021-05-08] MEDS: DOPamine 1600MCG/ML D5W 250 ML IV SCH ×2 (11:52→21:13)
[2021-05-08] MEDS ORDERED: FUROSEMIDE 40 MG/4 ML VIAL IV ONE (14:00)
[2021-05-08] MEDS: fentaNYL Drip 2500mCg/250mlNS 250 ML IV SCH ×2 (18:33→21:14)
[2021-05-08] MEDS: traZODone HCL 50 MG TAB PO SCH (21:12)
[2021-05-08] MEDS: INSULIN LANTUS (GLARGINE) 1 /0.01ml (100units/ml) SC SCH (23:00)
[2021-05-09] VITALS (102 sets, daily range): BP systolic 80–137; BP diastolic 45–76
[2021-05-09] MEDS: MIDAZOLAM DRIP 50 mg/50mL 50 ML IV SCH ×4 (02:43→17:01)
[2021-05-09] MEDS: ACCU-CHEK COMFORT CURVE STRIP VI SCH ×4 (05:32→23:33)
[2021-05-09] MEDS: METOCLOPRAMIDE HCL 5MG/ml INJ 2ml VIAL IV SCH ×3 (05:32→22:14)
[2021-05-09] MEDS: InsuLIN REG 1unit/0.01ml Soln (100units/ml) SC SCH ×3 (05:39→18:00)
[2021-05-09 05:47] LABS: Basophils # (auto) 0 10 ^3/uL (0-0.2); Basophils % (auto) 0.1 % (0.0-2.0); Eosinophils # (auto) 0 10 ^3/uL (0-0.8); Hematocrit 44.9 % (41.0-53.0); Hemoglobin 14.9 g/dL (13.5-17.5); Lymphocytes # (auto) 0.5 10 ^3/uL (0.4-5.4); Lymphocytes % (auto) 6.7 % (10.0-50.0); Mean Corpuscular Hemoglobin 28.8 pg (28.0-32.0); Mean Corpuscular Hgb Conc. 33.1 g/dL (32.0-36.0); Mean Corpuscular Volume 86.9 fL (80.0-100.0); Monocytes # (auto) 0.4 10 ^3/uL (0-1.3); Monocytes % (auto) 4.9 % (0.0-12.0); Neutrophils # (auto) 6.5 10 ^3/uL (1.6-8.6); Neutrophils % (auto) 88.3 % (37.0-80.0); Nucleated Red Blood Cells % 0.1 %; Red Blood Cells 5.17 10^6/uL (4.5-5.90); Red Cell Distribution Width 14.6 % (11.8-14.3); White Blood Cell 7.3 10^3/uL (4.4-10.8)
[2021-05-09 05:57] LABS: Calcium 8.5 mg/dL (8.5-10.1); Potassium 4.8 mmol/L (3.5-5.1)
[2021-05-09] MEDS: FUROSEMIDE 40 MG/4 ML VIAL IV SCH (08:57)
[2021-05-09] MEDS: NOREPINEPHRINE 8 MG/250ML KIT 250 ML IV SCH (08:57)
[2021-05-09] MEDS: PANTOPRAZOLE 40 MG/10 ML VIAL INJ IV SCH (09:53)
[2021-05-09] MEDS: DOCUSATE ORAL LIQUID 100 MG/10 ML UD GT SCH ×2 (09:53→22:14)
[2021-05-09] MEDS: ZINC SULFATE 220mg CAP or TAB PO SCH (09:53)
[2021-05-09] MEDS: ASCORBIC ACID 1,000 MG TAB PO SCH (09:53)
[2021-05-09] MEDS: APIXABAN 5 MG TAB PO SCH ×2 (09:53→22:14)
[2021-05-09] MEDS: DexAMETHasone SOD PHOS 10MG/1ML VIAL INJ IV SCH (09:53)
[2021-05-09] MEDS: CHOLECALCIFEROL (VITD3) 2,000 UNIT CAP/TAB PO SCH (09:53)
[2021-05-09] MEDS: fentaNYL Drip 2500mCg/250mlNS 250 ML IV SCH (11:18)
[2021-05-09] MEDS: DOPamine 1600MCG/ML D5W 250 ML IV SCH ×2 (14:00→22:30)
[2021-05-09] MEDS: INSULIN LANTUS (GLARGINE) 1 /0.01ml (100units/ml) SC SCH (22:00)
[2021-05-09] MEDS: traZODone HCL 50 MG TAB PO SCH (22:14)
[2021-05-10] VITALS (91 sets, daily range): BP systolic 86–132; BP diastolic 52–80
[2021-05-10] MEDS: ACCU-CHEK COMFORT CURVE STRIP VI SCH ×4 (06:00→23:37)
[2021-05-10] MEDS: METOCLOPRAMIDE HCL 5MG/ml INJ 2ml VIAL IV SCH ×3 (06:00→22:55)
[2021-05-10] MEDS: InsuLIN REG 1unit/0.01ml Soln (100units/ml) SC SCH ×5 (06:00→23:36)
[2021-05-10] MEDS: MIDAZOLAM DRIP 50 mg/50mL 50 ML IV SCH ×2 (06:40→23:00)
[2021-05-10] MEDS: DOPamine 1600MCG/ML D5W 250 ML IV SCH (07:18)
[2021-05-10] MEDS: PROPOFOL 100 ML IV SCH (09:00)
[2021-05-10] MEDS: NOREPINEPHRINE 8 MG/250ML KIT 250 ML IV SCH (09:00)
[2021-05-10] MEDS: DOCUSATE ORAL LIQUID 100 MG/10 ML UD GT SCH ×2 (10:30→22:55)
[2021-05-10] MEDS: DexAMETHasone SOD PHOS 10MG/1ML VIAL INJ IV SCH (10:30)
[2021-05-10] MEDS: PANTOPRAZOLE 40 MG/10 ML VIAL INJ IV SCH (10:31)
[2021-05-10] MEDS: APIXABAN 5 MG TAB PO SCH ×2 (10:31→22:55)
[2021-05-10] MEDS: ZINC SULFATE 220mg CAP or TAB PO SCH (10:31)
[2021-05-10] MEDS: ASCORBIC ACID 1,000 MG TAB PO SCH (10:31)
[2021-05-10] MEDS: FUROSEMIDE 40 MG/4 ML VIAL IV SCH (10:31)
[2021-05-10] MEDS: CHOLECALCIFEROL (VITD3) 2,000 UNIT CAP/TAB PO SCH (10:32)
[2021-05-10] MEDS ORDERED: BISACODYL 10 MG RECT SUPP PR ONE (11:30)
[2021-05-10] MEDS: LACTULOSE 20Gm/30ML SOLN PO SCH ×3 (12:00→23:01)
[2021-05-10] MEDS: fentaNYL Drip 2500mCg/250mlNS 250 ML IV SCH ×2 (12:25→22:00)
[2021-05-10] MEDS: traZODone HCL 50 MG TAB PO SCH (22:55)
[2021-05-10] MEDS: INSULIN LANTUS (GLARGINE) 1 /0.01ml (100units/ml) SC SCH (22:57)
[2021-05-11] VITALS (96 sets, daily range): BP systolic 74–164; BP diastolic 49–86
[2021-05-11] MEDS: DOPamine 1600MCG/ML D5W 250 ML IV SCH ×2 (01:08→21:05)
[2021-05-11 05:03] LABS: Basophils # (auto) 0 10 ^3/uL (0-0.2); Basophils % (auto) 0.1 % (0.0-2.0); Eosinophils # (auto) 0 10 ^3/uL (0-0.8); Eosinophils % (auto) 0.6 % (0.0-7.0); Hematocrit 44.8 % (41.0-53.0); Hemoglobin 14.9 g/dL (13.5-17.5); Lymphocytes # (auto) 0.7 10 ^3/uL (0.4-5.4); Lymphocytes % (auto) 12.9 % (10.0-50.0); Mean Corpuscular Hemoglobin 28.9 pg (28.0-32.0); Mean Corpuscular Hgb Conc. 33.2 g/dL (32.0-36.0); Mean Corpuscular Volume 86.9 fL (80.0-100.0); Monocytes # (auto) 0.3 10 ^3/uL (0-1.3); Neutrophils # (auto) 4.7 10 ^3/uL (1.6-8.6); Neutrophils % (auto) 80.4 % (37.0-80.0); Nucleated Red Blood Cells % 0.1 %; Red Blood Cells 5.15 10^6/uL (4.5-5.90); Red Cell Distribution Width 14.4 % (11.8-14.3); White Blood Cell 5.8 10^3/uL (4.4-10.8)
[2021-05-11 05:23] LABS: Calcium 8.2 mg/dL (8.5-10.1); Potassium 4.2 mmol/L (3.5-5.1)
[2021-05-11] MEDS: InsuLIN REG 1unit/0.01ml Soln (100units/ml) SC SCH ×3 (05:30→18:08)
[2021-05-11] MEDS: ACCU-CHEK COMFORT CURVE STRIP VI SCH ×3 (05:30→18:08)
[2021-05-11] MEDS: METOCLOPRAMIDE HCL 5MG/ml INJ 2ml VIAL IV SCH ×3 (05:32→22:56)
[2021-05-11] MEDS: LACTULOSE 20Gm/30ML SOLN PO SCH ×3 (05:32→17:59)
[2021-05-11] MEDS: PROPOFOL 100 ML IV SCH (09:00)
[2021-05-11] MEDS: NOREPINEPHRINE 8 MG/250ML KIT 250 ML IV SCH ×2 (09:00→20:00)
[2021-05-11] MEDS: FUROSEMIDE 40 MG/4 ML VIAL IV SCH (10:00)
[2021-05-11] MEDS: DOCUSATE ORAL LIQUID 100 MG/10 ML UD GT SCH ×2 (10:00→22:56)
[2021-05-11] MEDS: CHOLECALCIFEROL (VITD3) 2,000 UNIT CAP/TAB PO SCH (10:02)
[2021-05-11] MEDS: PANTOPRAZOLE 40 MG/10 ML VIAL INJ IV SCH (10:02)
[2021-05-11] MEDS: APIXABAN 5 MG TAB PO SCH ×2 (10:02→22:57)
[2021-05-11] MEDS: ZINC SULFATE 220mg CAP or TAB PO SCH (10:02)
[2021-05-11] MEDS: ASCORBIC ACID 1,000 MG TAB PO SCH (10:02)
[2021-05-11] MEDS: DexAMETHasone SOD PHOS 10MG/1ML VIAL INJ IV SCH (10:03)
[2021-05-11] MEDS: fentaNYL Drip 2500mCg/250mlNS 250 ML IV SCH (11:01)
[2021-05-11] MEDS: MIDAZOLAM DRIP 50 mg/50mL 50 ML IV SCH ×2 (17:11→21:12)
[2021-05-11] MEDS: traZODone HCL 50 MG TAB PO SCH (22:56)
[2021-05-11] MEDS: INSULIN LANTUS (GLARGINE) 1 /0.01ml (100units/ml) SC SCH (22:57)
[2021-05-12] VITALS (94 sets, daily range): BP systolic 66–136; BP diastolic 44–86
[2021-05-12] MEDS: fentaNYL Drip 2500mCg/250mlNS 250 ML IV SCH ×2 (01:00→19:30)
[2021-05-12] MEDS: MIDAZOLAM DRIP 50 mg/50mL 50 ML IV SCH ×2 (01:12→05:45)
[2021-05-12] MEDS: LACTULOSE 20Gm/30ML SOLN PO SCH ×3 (01:31→11:39)
[2021-05-12 05:30] LABS: Basophils # (auto) 0 10 ^3/uL (0-0.2); Basophils % (auto) 0.3 % (0.0-2.0); Eosinophils # (auto) 0 10 ^3/uL (0-0.8); Eosinophils % (auto) 0.4 % (0.0-7.0); Hematocrit 44.1 % (41.0-53.0); Hemoglobin 14.7 g/dL (13.5-17.5); Lymphocytes # (auto) 0.7 10 ^3/uL (0.4-5.4); Lymphocytes % (auto) 7.1 % (10.0-50.0); Mean Corpuscular Hemoglobin 28.7 pg (28.0-32.0); Mean Corpuscular Hgb Conc. 33.2 g/dL (32.0-36.0); Mean Corpuscular Volume 86.5 fL (80.0-100.0); Monocytes # (auto) 0.4 10 ^3/uL (0-1.3); Monocytes % (auto) 3.9 % (0.0-12.0); Neutrophils # (auto) 9.2 10 ^3/uL (1.6-8.6); Neutrophils % (auto) 88.3 % (37.0-80.0); Nucleated Red Blood Cells % 0.2 %; Red Cell Distribution Width 14.6 % (11.8-14.3); White Blood Cell 10.4 10^3/uL (4.4-10.8)
[2021-05-12 05:51] LABS: Potassium 4.4 mmol/L (3.5-5.1)
[2021-05-12 06:17] LABS: BUN/Creatinine Ratio 37.6; Calcium 8.2 mg/dL (8.5-10.1)
[2021-05-12] MEDS: ACCU-CHEK COMFORT CURVE STRIP VI SCH ×4 (06:26→17:13)
[2021-05-12] MEDS: InsuLIN REG 1unit/0.01ml Soln (100units/ml) SC SCH ×4 (06:26→17:04)
[2021-05-12] MEDS: METOCLOPRAMIDE HCL 5MG/ml INJ 2ml VIAL IV SCH ×3 (06:27→21:56)
[2021-05-12] MEDS: PROPOFOL 100 ML IV SCH (09:00)
[2021-05-12] MEDS: DOCUSATE ORAL LIQUID 100 MG/10 ML UD GT SCH (10:00)
[2021-05-12] MEDS: DexAMETHasone SOD PHOS 10MG/1ML VIAL INJ IV SCH (10:28)
[2021-05-12] MEDS: ZINC SULFATE 220mg CAP or TAB PO SCH (10:29)
[2021-05-12] MEDS: APIXABAN 5 MG TAB PO SCH ×2 (10:29→21:57)
[2021-05-12] MEDS: ASCORBIC ACID 1,000 MG TAB PO SCH (10:29)
[2021-05-12] MEDS: PANTOPRAZOLE 40 MG/10 ML VIAL INJ IV SCH (10:29)
[2021-05-12] MEDS: FUROSEMIDE 40 MG/4 ML VIAL IV SCH (10:29)
[2021-05-12] MEDS: CHOLECALCIFEROL (VITD3) 2,000 UNIT CAP/TAB PO SCH (10:30)
[2021-05-12] MEDS ORDERED: PIPERACILLIN-TAZOB 3.375GM 100 ML IV ONE (12:30)
[2021-05-12] MEDS ORDERED: FLUCONAZOLE 200MG/100ML 100 ML IV ONE (12:30)
[2021-05-12] MEDS: PIPERACILLIN-TAZOB 3.375GM 100 ML IV SCH ×2 (14:37→21:57)
[2021-05-12 17:41] LABS: INR 1.44 (0.9-1.15); Partial Thromboplastin Time 23.4 sec (23.6-33.0)
[2021-05-12] MEDS: ACETAMINOPHEN 500 MG TAB PO PRN (18:34)
[2021-05-12] MEDS: NOREPINEPHRINE 8 MG/250ML KIT 250 ML IV SCH (20:00)
[2021-05-12] MEDS: INSULIN LANTUS (GLARGINE) 1 /0.01ml (100units/ml) SC SCH (21:58)
[2021-05-12] MEDS ORDERED: LACTULOSE 20Gm/30ML SOLN PO SCH (22:00)
[2021-05-12] MEDS: DOPamine 1600MCG/ML D5W 250 ML IV SCH ×2 (23:17→23:55)
[2021-05-13] VITALS (95 sets, daily range): BP systolic 82–130; BP diastolic 51–95
[2021-05-13] MEDS: InsuLIN REG 1unit/0.01ml Soln (100units/ml) SC SCH ×4 (00:20→18:36)
[2021-05-13] MEDS: ACCU-CHEK COMFORT CURVE STRIP VI SCH ×4 (00:20→18:26)
[2021-05-13] MEDS: PIPERACILLIN-TAZOB 3.375GM 100 ML IV SCH ×3 (06:08→22:50)
[2021-05-13] MEDS: METOCLOPRAMIDE HCL 5MG/ml INJ 2ml VIAL IV SCH (06:08)
[2021-05-13 06:46] LABS: Basophils # (auto) 0 10 ^3/uL (0-0.2); Basophils % (auto) 0.1 % (0.0-2.0); Eosinophils # (auto) 0 10 ^3/uL (0-0.8); Eosinophils % (auto) 0.3 % (0.0-7.0); Hematocrit 47.1 % (41.0-53.0); Hemoglobin 15.7 g/dL (13.5-17.5); Lymphocytes % (auto) 10.2 % (10.0-50.0); Mean Corpuscular Hemoglobin 28.9 pg (28.0-32.0); Mean Corpuscular Hgb Conc. 33.4 g/dL (32.0-36.0); Mean Corpuscular Volume 86.6 fL (80.0-100.0); Monocytes # (auto) 0.5 10 ^3/uL (0-1.3); Monocytes % (auto) 5.1 % (0.0-12.0); Neutrophils # (auto) 8.5 10 ^3/uL (1.6-8.6); Neutrophils % (auto) 84.3 % (37.0-80.0); Red Blood Cells 5.44 10^6/uL (4.5-5.90); Red Cell Distribution Width 14.7 % (11.8-14.3); White Blood Cell 10.1 10^3/uL (4.4-10.8)
[2021-05-13 07:17] LABS: Calcium 8.2 mg/dL (8.5-10.1); Potassium 4.6 mmol/L (3.5-5.1)
[2021-05-13] MEDS: MIDAZOLAM DRIP 50 mg/50mL 50 ML IV SCH ×2 (09:00→20:30)
[2021-05-13] MEDS: PROPOFOL 100 ML IV SCH (09:00)
[2021-05-13] MEDS ORDERED: FLUCONAZOLE 200MG/100ML 100 ML IV SCH (10:00)
[2021-05-13] MEDS: APIXABAN 5 MG TAB PO SCH ×2 (10:00→22:00)
[2021-05-13] MEDS: FLUCONAZOLE 200MG/100ML 100 ML IV SCH ×2 (10:40→11:30)
[2021-05-13] MEDS: PANTOPRAZOLE 40 MG/10 ML VIAL INJ IV SCH (10:40)
[2021-05-13] MEDS: CHOLECALCIFEROL (VITD3) 2,000 UNIT CAP/TAB PO SCH (10:40)
[2021-05-13] MEDS: ASCORBIC ACID 1,000 MG TAB PO SCH (10:41)
[2021-05-13] MEDS: ZINC SULFATE 220mg CAP or TAB PO SCH (10:41)
[2021-05-13] MEDS: NYSTATIN (MOUTH-THROAT) 500,000 UNITS/5 ML SUSP MT SCH ×3 (11:12→22:50)
[2021-05-13] MEDS: ACETAMINOPHEN 500 MG TAB PO PRN (13:45)
[2021-05-13] MEDS: DOPamine 1600MCG/ML D5W 250 ML IV SCH (16:27)
[2021-05-13] MEDS: NOREPINEPHRINE 8 MG/250ML KIT 250 ML IV SCH (20:30)
[2021-05-13] MEDS: INSULIN LANTUS (GLARGINE) 1 /0.01ml (100units/ml) SC SCH (22:51)
[2021-05-13] MEDS: fentaNYL Drip 2500mCg/250mlNS 250 ML IV SCH (23:10)
[2021-05-14] VITALS (62 sets, daily range): BP systolic 81–146; BP diastolic 51–85
[2021-05-14 01:52] LABS: Urine Bacteria NONE SEEN /hpf (None Seen); Urine Blood TRACE /uL (Negative); Urine Budding Yeast FEW /hpf (None Seen); Urine Specific Gravity 1.029 (1.001-1.035); Urine WBC 12 /hpf (0 - 3)
[2021-05-14] MEDS: DOPamine 1600MCG/ML D5W 250 ML IV SCH ×2 (02:45→09:04)
[2021-05-14] MEDS: MIDAZOLAM DRIP 50 mg/50mL 50 ML IV SCH ×3 (03:15→20:00)
[2021-05-14] MEDS: PIPERACILLIN-TAZOB 3.375GM 100 ML IV SCH ×3 (06:00→22:14)
[2021-05-14] MEDS: InsuLIN REG 1unit/0.01ml Soln (100units/ml) SC SCH ×4 (06:00→16:56)
[2021-05-14] MEDS: NYSTATIN (MOUTH-THROAT) 500,000 UNITS/5 ML SUSP MT SCH ×4 (06:00→22:14)
[2021-05-14] MEDS: ACCU-CHEK COMFORT CURVE STRIP VI SCH ×4 (06:00→16:56)
[2021-05-14] MEDS: PROPOFOL 100 ML IV SCH (09:00)
[2021-05-14] MEDS: ASCORBIC ACID 1,000 MG TAB PO SCH (10:00)
[2021-05-14] MEDS: CHOLECALCIFEROL (VITD3) 2,000 UNIT CAP/TAB PO SCH (10:00)
[2021-05-14] MEDS: FLUCONAZOLE 200MG/100ML 100 ML IV SCH ×3 (10:30→13:14)
[2021-05-14] MEDS: PANTOPRAZOLE 40 MG/10 ML VIAL INJ IV SCH (10:30)
[2021-05-14] MEDS: ZINC SULFATE 220mg CAP or TAB PO SCH (10:30)
[2021-05-14] MEDS: APIXABAN 5 MG TAB PO SCH ×2 (10:43→22:14)
[2021-05-14 10:44] LABS: BUN/Creatinine Ratio 35.8; Calcium 8.1 mg/dL (8.5-10.1)
[2021-05-14 11:33] LABS: Basophils # (auto) 0 10 ^3/uL (0-0.2); Basophils % (auto) 0.2 % (0.0-2.0); Eosinophils # (auto) 0.1 10 ^3/uL (0-0.8); Eosinophils % (auto) 1.1 % (0.0-7.0); Hemoglobin 15.6 g/dL (13.5-17.5); Lymphocytes # (auto) 0.9 10 ^3/uL (0.4-5.4); Lymphocytes % (auto) 8.5 % (10.0-50.0); Mean Corpuscular Hemoglobin 28.2 pg (28.0-32.0); Mean Corpuscular Hgb Conc. 32.5 g/dL (32.0-36.0); Mean Corpuscular Volume 86.8 fL (80.0-100.0); Monocytes # (auto) 0.6 10 ^3/uL (0-1.3); Monocytes % (auto) 5.2 % (0.0-12.0); Neutrophils # (auto) 9.2 10 ^3/uL (1.6-8.6); Nucleated Red Blood Cells % 0.1 %; Red Blood Cells 5.53 10^6/uL (4.5-5.90); Red Cell Distribution Width 14.5 % (11.8-14.3); White Blood Cell 10.8 10^3/uL (4.4-10.8)
[2021-05-14] MEDS ORDERED: SODIUM CHLORIDE 0.9% 1,000 ML IV ONE (11:45)
[2021-05-14] MEDS: ALBUMIN 25% 100 ML IV SCH ×2 (11:57→20:22)
[2021-05-14 12:39] LABS: Potassium 5.6 mmol/L (3.5-5.1)
[2021-05-14] MEDS: LORazepam 2MG/ML-1ML VIAL IV PRN (16:54)
[2021-05-14] MEDS: NOREPINEPHRINE 8 MG/250ML KIT 250 ML IV SCH (20:45)
[2021-05-14] MEDS: INSULIN LANTUS (GLARGINE) 1 /0.01ml (100units/ml) SC SCH (22:14)
[2021-05-14] MEDS: fentaNYL Drip 2500mCg/250mlNS 250 ML IV SCH (22:37)
[2021-05-15] VITALS (99 sets, daily range): BP systolic 89–140; BP diastolic 19–81
[2021-05-15] MEDS: MIDAZOLAM DRIP 50 mg/50mL 50 ML IV SCH (00:20)
[2021-05-15] MEDS: DOPamine 1600MCG/ML D5W 250 ML IV SCH ×2 (02:45→19:00)
[2021-05-15] MEDS: ALBUMIN 25% 100 ML IV SCH (03:45)
[2021-05-15] MEDS: NYSTATIN (MOUTH-THROAT) 500,000 UNITS/5 ML SUSP MT SCH ×4 (05:41→21:50)
[2021-05-15] MEDS: ACCU-CHEK COMFORT CURVE STRIP VI SCH ×4 (05:42→17:58)
[2021-05-15] MEDS: PIPERACILLIN-TAZOB 3.375GM 100 ML IV SCH (05:42)
[2021-05-15] MEDS: InsuLIN REG 1unit/0.01ml Soln (100units/ml) SC SCH ×4 (05:42→17:59)
[2021-05-15 06:14] LABS: Basophils # (auto) 0 10 ^3/uL (0-0.2); Basophils % (auto) 0.2 % (0.0-2.0); Eosinophils # (auto) 0.2 10 ^3/uL (0-0.8); Eosinophils % (auto) 2.2 % (0.0-7.0); Hematocrit 38.6 % (41.0-53.0); Hemoglobin 12.6 g/dL (13.5-17.5); Lymphocytes # (auto) 1.1 10 ^3/uL (0.4-5.4); Lymphocytes % (auto) 14.6 % (10.0-50.0); Mean Corpuscular Hemoglobin 28.1 pg (28.0-32.0); Mean Corpuscular Hgb Conc. 32.7 g/dL (32.0-36.0); Mean Corpuscular Volume 85.9 fL (80.0-100.0); Monocytes # (auto) 0.2 10 ^3/uL (0-1.3); Monocytes % (auto) 3.3 % (0.0-12.0); Neutrophils % (auto) 79.7 % (37.0-80.0); Red Blood Cells 4.49 10^6/uL (4.5-5.90); Red Cell Distribution Width 14.4 % (11.8-14.3); White Blood Cell 7.5 10^3/uL (4.4-10.8)
[2021-05-15 06:46] LABS: Potassium 4.1 mmol/L (3.5-5.1)
[2021-05-15 06:51] LABS: BUN/Creatinine Ratio 31.6; Calcium 8.3 mg/dL (8.5-10.1)
[2021-05-15] MEDS: PROPOFOL 100 ML IV SCH (09:00)
[2021-05-15] MEDS: PANTOPRAZOLE 40 MG/10 ML VIAL INJ IV SCH (10:59)
[2021-05-15] MEDS: ZINC SULFATE 220mg CAP or TAB PO SCH (10:59)
[2021-05-15] MEDS: APIXABAN 5 MG TAB PO SCH ×2 (10:59→21:50)
[2021-05-15] MEDS: ASCORBIC ACID 1,000 MG TAB PO SCH (11:00)
[2021-05-15] MEDS: CHOLECALCIFEROL (VITD3) 2,000 UNIT CAP/TAB PO SCH (11:00)
[2021-05-15] MEDS: FLUCONAZOLE 200MG/100ML 100 ML IV SCH ×2 (11:01→13:11)
[2021-05-15] MEDS: levoFLOXacin 500MG 100 ML IV SCH (14:49)
[2021-05-15] MEDS: INSULIN LANTUS (GLARGINE) 1 /0.01ml (100units/ml) SC SCH (21:51)
[2021-05-16] VITALS (101 sets, daily range): BP systolic 72–159; BP diastolic 47–93
[2021-05-16] MEDS: ACCU-CHEK COMFORT CURVE STRIP VI SCH ×4 (01:19→18:45)
[2021-05-16] MEDS: MIDAZOLAM DRIP 50 mg/50mL 50 ML IV SCH (01:51)
[2021-05-16 05:20] LABS: Basophils # (auto) 0 10 ^3/uL (0-0.2); Basophils % (auto) 0.2 % (0.0-2.0); Eosinophils # (auto) 0.1 10 ^3/uL (0-0.8); Eosinophils % (auto) 1.8 % (0.0-7.0); Hematocrit 38.4 % (41.0-53.0); Hemoglobin 12.9 g/dL (13.5-17.5); Lymphocytes # (auto) 0.9 10 ^3/uL (0.4-5.4); Lymphocytes % (auto) 13.1 % (10.0-50.0); Mean Corpuscular Hemoglobin 28.7 pg (28.0-32.0); Mean Corpuscular Hgb Conc. 33.5 g/dL (32.0-36.0); Mean Corpuscular Volume 85.5 fL (80.0-100.0); Monocytes # (auto) 0.3 10 ^3/uL (0-1.3); Monocytes % (auto) 3.9 % (0.0-12.0); Neutrophils # (auto) 5.3 10 ^3/uL (1.6-8.6); Red Cell Distribution Width 14.6 % (11.8-14.3); White Blood Cell 6.5 10^3/uL (4.4-10.8)
[2021-05-16 05:34] LABS: Calcium 8.2 mg/dL (8.5-10.1); Potassium 3.9 mmol/L (3.5-5.1)
[2021-05-16 05:36] LABS: BUN/Creatinine Ratio 33.8
[2021-05-16] MEDS: InsuLIN REG 1unit/0.01ml Soln (100units/ml) SC SCH ×4 (05:37→18:45)
[2021-05-16] MEDS: NYSTATIN (MOUTH-THROAT) 500,000 UNITS/5 ML SUSP MT SCH ×4 (05:37→21:05)
[2021-05-16] MEDS: fentaNYL Drip 2500mCg/250mlNS 250 ML IV SCH (05:40)
[2021-05-16] MEDS: NOREPINEPHRINE 8 MG/250ML KIT 250 ML IV SCH (07:33)
[2021-05-16] MEDS: CHOLECALCIFEROL (VITD3) 2,000 UNIT CAP/TAB PO SCH (10:35)
[2021-05-16] MEDS: ZINC SULFATE 220mg CAP or TAB PO SCH (10:36)
[2021-05-16] MEDS: ASCORBIC ACID 1,000 MG TAB PO SCH (10:36)
[2021-05-16] MEDS: APIXABAN 5 MG TAB PO SCH ×2 (10:38→21:05)
[2021-05-16] MEDS: PANTOPRAZOLE 40 MG/10 ML VIAL INJ IV SCH (10:39)
[2021-05-16] MEDS: levoFLOXacin 500MG 100 ML IV SCH (14:05)
[2021-05-16] MEDS: LORazepam 2MG/ML-1ML VIAL IV PRN ×2 (15:19→22:58)
[2021-05-16] MEDS: MORPHINE SULFATE INJECTION 2 MG/ML SYRG IV PRN ×2 (15:48→22:10)
[2021-05-16] MEDS: Glucerna 1.2 Cal 1Liter BOTTLE GT SCH (21:00)
[2021-05-16] MEDS: traZODone HCL 50 MG TAB GT SCH (21:05)
[2021-05-16] MEDS: INSULIN LANTUS (GLARGINE) 1 /0.01ml (100units/ml) SC SCH (21:50)
[2021-05-17] VITALS (94 sets, daily range): BP systolic 71–203; BP diastolic 34–128
[2021-05-17] MEDS: ACCU-CHEK COMFORT CURVE STRIP VI SCH ×4 (01:30→18:10)
[2021-05-17] MEDS: MORPHINE SULFATE INJECTION 2 MG/ML SYRG IV PRN ×3 (04:40→21:13)
[2021-05-17 05:16] LABS: Basophils # (auto) 0 10 ^3/uL (0-0.2); Basophils % (auto) 0.3 % (0.0-2.0); Eosinophils # (auto) 0.1 10 ^3/uL (0-0.8); Eosinophils % (auto) 1.9 % (0.0-7.0); Hematocrit 39.3 % (41.0-53.0); Lymphocytes # (auto) 1.2 10 ^3/uL (0.4-5.4); Mean Corpuscular Hemoglobin 28.6 pg (28.0-32.0); Mean Corpuscular Hgb Conc. 33.1 g/dL (32.0-36.0); Mean Corpuscular Volume 86.4 fL (80.0-100.0); Monocytes # (auto) 0.2 10 ^3/uL (0-1.3); Monocytes % (auto) 4.3 % (0.0-12.0); Neutrophils # (auto) 3.7 10 ^3/uL (1.6-8.6); Neutrophils % (auto) 70.5 % (37.0-80.0); Nucleated Red Blood Cells % 0.2 %; Red Blood Cells 4.54 10^6/uL (4.5-5.90); Red Cell Distribution Width 14.9 % (11.8-14.3); White Blood Cell 5.2 10^3/uL (4.4-10.8)
[2021-05-17 05:34] LABS: Calcium 8.5 mg/dL (8.5-10.1); Potassium 3.7 mmol/L (3.5-5.1)
[2021-05-17] MEDS: NYSTATIN (MOUTH-THROAT) 500,000 UNITS/5 ML SUSP MT SCH ×4 (05:37→21:10)
[2021-05-17 05:38] LABS: BUN/Creatinine Ratio 26.7
[2021-05-17] MEDS: InsuLIN REG 1unit/0.01ml Soln (100units/ml) SC SCH ×4 (05:54→18:00)
[2021-05-17] MEDS: NOREPINEPHRINE 8 MG/250ML KIT 250 ML IV SCH ×2 (08:28→15:51)
[2021-05-17] MEDS: PANTOPRAZOLE 40 MG/10 ML VIAL INJ IV SCH (08:28)
[2021-05-17] MEDS: CHOLECALCIFEROL (VITD3) 2,000 UNIT CAP/TAB PO SCH (08:29)
[2021-05-17] MEDS: APIXABAN 5 MG TAB PO SCH ×2 (08:29→21:10)
[2021-05-17] MEDS: ASCORBIC ACID 1,000 MG TAB PO SCH (08:29)
[2021-05-17] MEDS: ZINC SULFATE 220mg CAP or TAB PO SCH (08:29)
[2021-05-17] MEDS: LORazepam 2MG/ML-1ML VIAL IV PRN ×2 (09:22→20:30)
[2021-05-17] MEDS: fentaNYL Drip 2500mCg/250mlNS 250 ML IV SCH (12:16)
[2021-05-17] MEDS: levoFLOXacin 500MG 100 ML IV SCH (15:46)
[2021-05-17] MEDS: traZODone HCL 50 MG TAB GT SCH (21:10)
[2021-05-17] MEDS: PROPOFOL 100 ML IV SCH (21:51)
[2021-05-17] MEDS: INSULIN LANTUS (GLARGINE) 1 /0.01ml (100units/ml) SC SCH (22:00)
[2021-05-18] VITALS (96 sets, daily range): BP systolic 86–190; BP diastolic 49–123
[2021-05-18] MEDS: LORazepam 2MG/ML-1ML VIAL IV PRN (05:00)
[2021-05-18] MEDS: fentaNYL Drip 2500mCg/250mlNS 250 ML IV SCH (05:38)
[2021-05-18 05:40] LABS: Basophils # (auto) 0.2 10 ^3/uL (0-0.2); Basophils % (auto) 2.5 % (0.0-2.0); Eosinophils # (auto) 0.2 10 ^3/uL (0-0.8); Eosinophils % (auto) 2.9 % (0.0-7.0); Hematocrit 39.8 % (41.0-53.0); Hemoglobin 13.2 g/dL (13.5-17.5); Lymphocytes # (auto) 1.3 10 ^3/uL (0.4-5.4); Lymphocytes % (auto) 19.7 % (10.0-50.0); Mean Corpuscular Hemoglobin 28.7 pg (28.0-32.0); Mean Corpuscular Hgb Conc. 33.1 g/dL (32.0-36.0); Mean Corpuscular Volume 86.7 fL (80.0-100.0); Monocytes # (auto) 0.4 10 ^3/uL (0-1.3); Monocytes % (auto) 5.8 % (0.0-12.0); Neutrophils # (auto) 4.6 10 ^3/uL (1.6-8.6); Neutrophils % (auto) 69.1 % (37.0-80.0); Nucleated Red Blood Cells % 0.1 %; Red Cell Distribution Width 14.5 % (11.8-14.3); White Blood Cell 6.7 10^3/uL (4.4-10.8)
[2021-05-18 05:50] LABS: Calcium 8.4 mg/dL (8.5-10.1); Potassium 3.9 mmol/L (3.5-5.1)
[2021-05-18] MEDS: InsuLIN REG 1unit/0.01ml Soln (100units/ml) SC SCH ×4 (06:00→18:00)
[2021-05-18] MEDS: ACCU-CHEK COMFORT CURVE STRIP VI SCH ×4 (06:00→18:17)
[2021-05-18] MEDS: NYSTATIN (MOUTH-THROAT) 500,000 UNITS/5 ML SUSP MT SCH ×4 (06:27→22:30)
[2021-05-18] MEDS: APIXABAN 5 MG TAB PO SCH ×2 (08:11→22:30)
[2021-05-18] MEDS: ZINC SULFATE 220mg CAP or TAB PO SCH (08:11)
[2021-05-18] MEDS: PANTOPRAZOLE 40 MG/10 ML VIAL INJ IV SCH (08:11)
[2021-05-18] MEDS: CHOLECALCIFEROL (VITD3) 2,000 UNIT CAP/TAB PO SCH (08:12)
[2021-05-18] MEDS: ASCORBIC ACID 1,000 MG TAB PO SCH (08:12)
[2021-05-18] MEDS: PROPOFOL 100 ML IV SCH (13:00)
[2021-05-18] MEDS: levoFLOXacin 500MG 100 ML IV SCH (14:41)
[2021-05-18] MEDS: traZODone HCL 50 MG TAB GT SCH (22:30)
[2021-05-18] MEDS: INSULIN LANTUS (GLARGINE) 1 /0.01ml (100units/ml) SC SCH (22:31)
[2021-05-19] VITALS (62 sets, daily range): BP systolic 89–199; BP diastolic 52–125
[2021-05-19] MEDS: InsuLIN REG 1unit/0.01ml Soln (100units/ml) SC SCH ×5 (05:06→23:32)
[2021-05-19] MEDS: ACCU-CHEK COMFORT CURVE STRIP VI SCH ×5 (05:07→23:32)
[2021-05-19] MEDS: NYSTATIN (MOUTH-THROAT) 500,000 UNITS/5 ML SUSP MT SCH ×4 (05:08→21:38)
[2021-05-19 05:16] LABS: Basophils # (auto) 0 10 ^3/uL (0-0.2); Basophils % (auto) 0.3 % (0.0-2.0); Eosinophils # (auto) 0.3 10 ^3/uL (0-0.8); Eosinophils % (auto) 6.7 % (0.0-7.0); Hematocrit 35.4 % (41.0-53.0); Hemoglobin 11.8 g/dL (13.5-17.5); Lymphocytes # (auto) 1.2 10 ^3/uL (0.4-5.4); Lymphocytes % (auto) 24.5 % (10.0-50.0); Mean Corpuscular Hemoglobin 28.9 pg (28.0-32.0); Mean Corpuscular Hgb Conc. 33.3 g/dL (32.0-36.0); Mean Corpuscular Volume 86.6 fL (80.0-100.0); Monocytes # (auto) 0.3 10 ^3/uL (0-1.3); Monocytes % (auto) 6.4 % (0.0-12.0); Neutrophils % (auto) 62.1 % (37.0-80.0); Nucleated Red Blood Cells % 0.1 %; Red Blood Cells 4.09 10^6/uL (4.5-5.90); Red Cell Distribution Width 14.6 % (11.8-14.3); White Blood Cell 4.8 10^3/uL (4.4-10.8)
[2021-05-19 05:30] LABS: INR 1.54 (0.9-1.15); Partial Thromboplastin Time 26.1 sec (23.6-33.0)
[2021-05-19 05:45] LABS: Albumin 2.6 g/dL (3.4-5.0); Calcium 8.3 mg/dL (8.5-10.1); Magnesium 2.1 mg/dL (1.6-2.6); Potassium 3.7 mmol/L (3.5-5.1)
[2021-05-19 05:49] LABS: BUN/Creatinine Ratio 22.4; Bilirubin, Total 0.5 mg/dL (0.2-1.0); Phosphorus 3.1 mg/dL (2.5-4.90); Total Protein 4.9 g/dL (6.4-8.2)
[2021-05-19] MEDS: NOREPINEPHRINE 8 MG/250ML KIT 250 ML IV SCH (09:00)
[2021-05-19] MEDS: ZINC SULFATE 220mg CAP or TAB PO SCH (09:49)
[2021-05-19] MEDS: PANTOPRAZOLE 40 MG/10 ML VIAL INJ IV SCH (09:49)
[2021-05-19] MEDS: ASCORBIC ACID 1,000 MG TAB PO SCH (09:50)
[2021-05-19] MEDS: CHOLECALCIFEROL (VITD3) 2,000 UNIT CAP/TAB PO SCH (09:50)
[2021-05-19] MEDS: APIXABAN 5 MG TAB PO SCH ×2 (09:50→21:38)
[2021-05-19] MEDS ORDERED: LABETALOL HCL 5 MG/ML ML 20ML VIAL IV ONE (10:15)
[2021-05-19] MEDS: LABETALOL HCL 5 MG/ML 4ML SYRINGE IV PRN ×2 (10:20→22:09)
[2021-05-19 11:28] LABS: INR 1.5 (0.9-1.15); Partial Thromboplastin Time 24.3 sec (23.6-33.0)
[2021-05-19] MEDS: fentaNYL Drip 2500mCg/250mlNS 250 ML IV SCH (11:45)
[2021-05-19] MEDS: levoFLOXacin 500MG 100 ML IV SCH (14:00)
[2021-05-19] MEDS: traZODone HCL 50 MG TAB GT SCH (21:38)
[2021-05-19] MEDS: INSULIN LANTUS (GLARGINE) 1 /0.01ml (100units/ml) SC SCH (22:00)
[2021-05-19] MEDS: LORazepam 2MG/ML-1ML VIAL IV PRN (23:38)
[2021-05-20] VITALS (22 sets, daily range): BP systolic 120–171; BP diastolic 66–91
[2021-05-20 05:10] LABS: Basophils # (auto) 0 10 ^3/uL (0-0.2); Basophils % (auto) 0.3 % (0.0-2.0); Eosinophils # (auto) 0.2 10 ^3/uL (0-0.8); Eosinophils % (auto) 4.6 % (0.0-7.0); Hematocrit 37.8 % (41.0-53.0); Hemoglobin 12.7 g/dL (13.5-17.5); Lymphocytes # (auto) 0.9 10 ^3/uL (0.4-5.4); Lymphocytes % (auto) 16.4 % (10.0-50.0); Mean Corpuscular Hemoglobin 28.7 pg (28.0-32.0); Mean Corpuscular Hgb Conc. 33.5 g/dL (32.0-36.0); Mean Corpuscular Volume 85.9 fL (80.0-100.0); Monocytes # (auto) 0.3 10 ^3/uL (0-1.3); Monocytes % (auto) 6.5 % (0.0-12.0); Neutrophils # (auto) 3.8 10 ^3/uL (1.6-8.6); Neutrophils % (auto) 72.2 % (37.0-80.0); Nucleated Red Blood Cells % 0.1 %; Red Cell Distribution Width 14.5 % (11.8-14.3); White Blood Cell 5.2 10^3/uL (4.4-10.8)
[2021-05-20] MEDS: ACCU-CHEK COMFORT CURVE STRIP VI SCH ×4 (05:51→23:48)
[2021-05-20] MEDS: InsuLIN REG 1unit/0.01ml Soln (100units/ml) SC SCH ×4 (05:51→23:48)
[2021-05-20] MEDS: NYSTATIN (MOUTH-THROAT) 500,000 UNITS/5 ML SUSP MT SCH ×2 (05:51→11:09)
[2021-05-20] MEDS: APIXABAN 5 MG TAB PO SCH (08:05)
[2021-05-20] MEDS: ZINC SULFATE 220mg CAP or TAB PO SCH (08:05)
[2021-05-20] MEDS: ASCORBIC ACID 1,000 MG TAB PO SCH (08:06)
[2021-05-20] MEDS: CHOLECALCIFEROL (VITD3) 2,000 UNIT CAP/TAB PO SCH (08:06)
[2021-05-20] MEDS ORDERED: FUROSEMIDE 40 MG/4 ML VIAL IV ONE (08:45)
[2021-05-20] MEDS: PANTOPRAZOLE 40 MG/10 ML VIAL INJ IV SCH ×2 (09:05→23:13)
[2021-05-20 11:48] LABS: Hematocrit 38.3 % (41.0-53.0); Hemoglobin 12.5 g/dL (13.5-17.5)
[2021-05-20] MEDS: ALBUTEROL SULF 2.5 MG/0.5ML(0.5%) NEB SOLN NEB SCH ×4 (11:54→22:23)
[2021-05-20] MEDS: IPRATROPIUM BROM 0.5 MG/2.5ML INH SOL NEB SCH ×4 (11:55→22:23)
[2021-05-20] MEDS: ACETYLCYSTEINE 10 %(100MG/ML) SOL 4ML NEB SCH ×4 (11:55→22:23)
[2021-05-20] MEDS ORDERED: DIGOXIN (250MCG/ML) 2 ML AMPULE IV ONE (13:45)
[2021-05-20] MEDS ORDERED: DIGOXIN (250MCG/ML) 2 ML AMPULE ONE (13:46)
[2021-05-20 20:58] LABS: Hematocrit 37.9 % (41.0-53.0); Hemoglobin 12.4 g/dL (13.5-17.5)
[2021-05-20] MEDS: LABETALOL HCL 5 MG/ML 4ML SYRINGE IV PRN (21:09)
[2021-05-20] MEDS: traZODone HCL 50 MG TAB GT SCH (22:00)
[2021-05-20] MEDS: INSULIN LANTUS (GLARGINE) 1 /0.01ml (100units/ml) SC SCH (23:14)
[2021-05-20] MEDS: LORazepam 2MG/ML-1ML VIAL IV PRN (23:15)
[2021-05-21] VITALS (24 sets, daily range): BP systolic 112–145; BP diastolic 49–96
[2021-05-21 01:09] LABS: Hematocrit 37.3 % (41.0-53.0); Hemoglobin 12.5 g/dL (13.5-17.5)
[2021-05-21] MEDS: ALBUTEROL SULF 2.5 MG/0.5ML(0.5%) NEB SOLN NEB SCH ×6 (02:11→22:20)
[2021-05-21] MEDS: ACETYLCYSTEINE 10 %(100MG/ML) SOL 4ML NEB SCH ×6 (02:11→22:20)
[2021-05-21] MEDS: IPRATROPIUM BROM 0.5 MG/2.5ML INH SOL NEB SCH ×6 (02:11→22:20)
[2021-05-21 05:16] LABS: Basophils # (auto) 0 10 ^3/uL (0-0.2); Basophils % (auto) 0.5 % (0.0-2.0); Eosinophils # (auto) 0.3 10 ^3/uL (0-0.8); Eosinophils % (auto) 6.9 % (0.0-7.0); Hematocrit 36.8 % (41.0-53.0); Hemoglobin 12.2 g/dL (13.5-17.5); Lymphocytes # (auto) 0.8 10 ^3/uL (0.4-5.4); Lymphocytes % (auto) 16.6 % (10.0-50.0); Mean Corpuscular Hemoglobin 28.6 pg (28.0-32.0); Mean Corpuscular Hgb Conc. 33.3 g/dL (32.0-36.0); Monocytes # (auto) 0.4 10 ^3/uL (0-1.3); Monocytes % (auto) 7.5 % (0.0-12.0); Neutrophils # (auto) 3.3 10 ^3/uL (1.6-8.6); Neutrophils % (auto) 68.5 % (37.0-80.0); Nucleated Red Blood Cells % 0.2 %; Red Blood Cells 4.28 10^6/uL (4.5-5.90); Red Cell Distribution Width 14.8 % (11.8-14.3); White Blood Cell 4.9 10^3/uL (4.4-10.8)
[2021-05-21] MEDS: ACCU-CHEK COMFORT CURVE STRIP VI SCH ×2 (06:00→18:00)
[2021-05-21] MEDS: InsuLIN REG 1unit/0.01ml Soln (100units/ml) SC SCH ×2 (06:00→18:00)
[2021-05-21] MEDS: PANTOPRAZOLE 40 MG/10 ML VIAL INJ IV SCH ×2 (09:36→22:14)
[2021-05-21] MEDS: CHOLECALCIFEROL (VITD3) 2,000 UNIT CAP/TAB PO SCH (10:00)
[2021-05-21] MEDS ORDERED: DIGOXIN (250MCG/ML) 2 ML AMPULE IV SCH (10:00)
[2021-05-21 11:23] LABS: BUN/Creatinine Ratio 25.5; Calcium 8.6 mg/dL (8.5-10.1); Potassium 3.4 mmol/L (3.5-5.1)
[2021-05-21] MEDS ORDERED: CLINIMIX PER PHARMACY 0 ML IV SCH (11:30)
[2021-05-21 14:54] LABS: Albumin 2.9 g/dL (3.4-5.0)
[2021-05-21 14:59] LABS: Bilirubin, Direct 0.3 mg/dL (0-0.2); Bilirubin, Total 0.8 mg/dL (0.2-1.0); Phosphorus 3.4 mg/dL (2.5-4.90); Pre Albumin 18.3 mg/dL (20.0-40.0); Total Protein 5.6 g/dL (6.4-8.2)
[2021-05-21] MEDS ORDERED: DEXTROSE (50%) 50ML SYRG IV SCH (18:00)
[2021-05-21] MEDS ORDERED: AMINO ACID INFUSION IN D10W 1,000 ML IV NR (20:00)
[2021-05-21] MEDS: traZODone HCL 50 MG TAB GT SCH (22:14)
[2021-05-21] MEDS: INSULIN LANTUS (GLARGINE) 1 /0.01ml (100units/ml) SC SCH (22:15)
[2021-05-22] VITALS (17 sets, daily range): BP systolic 89–128; BP diastolic 51–70
[2021-05-22] MEDS: ALBUTEROL SULF 2.5 MG/0.5ML(0.5%) NEB SOLN NEB SCH ×2 (02:28→10:25)
[2021-05-22] MEDS: IPRATROPIUM BROM 0.5 MG/2.5ML INH SOL NEB SCH ×4 (02:28→18:23)
[2021-05-22] MEDS: ACETYLCYSTEINE 10 %(100MG/ML) SOL 4ML NEB SCH ×5 (02:30→18:24)
[2021-05-22] MEDS: InsuLIN REG 1unit/0.01ml Soln (100units/ml) SC SCH ×4 (05:38→18:19)
[2021-05-22] MEDS: ACCU-CHEK COMFORT CURVE STRIP VI SCH ×4 (05:45→18:19)
[2021-05-22 05:59] LABS: Potassium 3.2 mmol/L (3.5-5.1)
[2021-05-22 06:08] LABS: Albumin 2.7 g/dL (3.4-5.0); BUN/Creatinine Ratio 33.3; Bilirubin, Total 0.5 mg/dL (0.2-1.0); Calcium 8.5 mg/dL (8.5-10.1); Magnesium 1.8 mg/dL (1.6-2.6); Phosphorus 2.1 mg/dL (2.5-4.90); Total Protein 5.1 g/dL (6.4-8.2)
[2021-05-22] MEDS ORDERED: POTASSIUM PHOSPHATE 44 MEQ in D5W 5% 250 ML IV ONE ×4 (08:30)
[2021-05-22] MEDS: METOPROLOL TARTRATE 25 MG TAB PO SCH ×2 (10:21→22:47)
[2021-05-22] MEDS: PANTOPRAZOLE 40 MG/10 ML VIAL INJ IV SCH (10:21)
[2021-05-22] MEDS: CHOLECALCIFEROL (VITD3) 2,000 UNIT CAP/TAB PO SCH (10:21)
[2021-05-22] MEDS ORDERED: DEXTROSE (50%) 50ML SYRG IV PRN (11:30)
[2021-05-22] MEDS: LEVALBUTEROL HCL 1.25 MG/3 ML NEB NEB SCH ×2 (12:00→18:23)
[2021-05-22] MEDS ORDERED: AMINO ACID INFUSION IN D10W 1,000 ML IV NR (20:00)
[2021-05-22] MEDS ORDERED: AMINO ACID ELECTROLYTE W/ CALC 1,000 ML IV SCH (20:00)
[2021-05-22] MEDS: traZODone HCL 50 MG TAB PO SCH (22:46)
[2021-05-22] MEDS: AMIODARONE HCL 200 MG TAB PO SCH (22:46)
[2021-05-22] MEDS: INSULIN LANTUS (GLARGINE) 1 /0.01ml (100units/ml) SC SCH (22:48)
[2021-05-23] MEDS: ACETYLCYSTEINE 10 %(100MG/ML) SOL 4ML NEB SCH ×5 (00:22→22:55)
[2021-05-23] MEDS: LEVALBUTEROL HCL 1.25 MG/3 ML NEB NEB SCH ×5 (00:22→22:50)
[2021-05-23] MEDS: IPRATROPIUM BROM 0.5 MG/2.5ML INH SOL NEB SCH ×5 (00:22→22:55)
[2021-05-23] MEDS: ACCU-CHEK COMFORT CURVE STRIP VI SCH ×5 (00:28→22:00)
[2021-05-23] MEDS: InsuLIN REG 1unit/0.01ml Soln (100units/ml) SC SCH ×5 (00:28→22:00)
[2021-05-23 05:00] VITALS: BP 114/73
[2021-05-23 06:48] LABS: Basophils # (auto) 0.1 10 ^3/uL (0-0.2); Basophils % (auto) 1.1 % (0.0-2.0); Eosinophils # (auto) 0.7 10 ^3/uL (0-0.8); Eosinophils % (auto) 14.9 % (0.0-7.0); Hematocrit 31.9 % (41.0-53.0); Hemoglobin 10.6 g/dL (13.5-17.5); Lymphocytes # (auto) 0.8 10 ^3/uL (0.4-5.4); Lymphocytes % (auto) 18.9 % (10.0-50.0); Mean Corpuscular Hemoglobin 28.8 pg (28.0-32.0); Mean Corpuscular Hgb Conc. 33.2 g/dL (32.0-36.0); Mean Corpuscular Volume 86.7 fL (80.0-100.0); Monocytes # (auto) 0.4 10 ^3/uL (0-1.3); Monocytes % (auto) 8.4 % (0.0-12.0); Neutrophils # (auto) 2.5 10 ^3/uL (1.6-8.6); Neutrophils % (auto) 56.7 % (37.0-80.0); Nucleated Red Blood Cells % 0.1 %; Red Blood Cells 3.67 10^6/uL (4.5-5.90); Red Cell Distribution Width 15.2 % (11.8-14.3); White Blood Cell 4.4 10^3/uL (4.4-10.8)
[2021-05-23] MEDS: AMIODARONE HCL 200 MG TAB PO SCH ×2 (09:31→22:00)
[2021-05-23] MEDS: PANTOPRAZOLE 40 MG TAB PO SCH (09:31)
[2021-05-23] MEDS: CHOLECALCIFEROL (VITD3) 2,000 UNIT CAP/TAB PO SCH (09:31)
[2021-05-23] MEDS: METOPROLOL TARTRATE 25 MG TAB PO SCH ×2 (09:32→21:59)
[2021-05-23 09:33] VITALS: BP 115/55
[2021-05-23] MEDS ORDERED: POTASSIUM CHL 20 Meq TABLET PO ONE (11:30)
[2021-05-23] MEDS ORDERED: LORazepam 0.5 MG TAB PO PRN (12:15)
[2021-05-23 13:06] VITALS: BP 100/57
[2021-05-23 17:00] VITALS: BP 108/60
[2021-05-23 22:00] VITALS: BP 104/61
[2021-05-23] MEDS: traZODone HCL 50 MG TAB PO SCH (22:00)
[2021-05-23] MEDS: APIXABAN 5 MG TAB PO SCH (22:00)
[2021-05-23] MEDS: INSULIN LANTUS (GLARGINE) 1 /0.01ml (100units/ml) SC SCH (22:00)
[2021-05-24 05:00] VITALS: BP 112/64
[2021-05-24] MEDS: InsuLIN REG 1unit/0.01ml Soln (100units/ml) SC SCH ×4 (06:00→21:23)
[2021-05-24] MEDS: LEVALBUTEROL HCL 1.25 MG/3 ML NEB NEB SCH ×3 (06:00→20:20)
[2021-05-24] MEDS: ACCU-CHEK COMFORT CURVE STRIP VI SCH ×4 (06:08→21:23)
[2021-05-24] MEDS: ACETYLCYSTEINE 10 %(100MG/ML) SOL 4ML NEB SCH ×3 (07:05→20:20)
[2021-05-24] MEDS: IPRATROPIUM BROM 0.5 MG/2.5ML INH SOL NEB SCH ×3 (07:05→20:20)
[2021-05-24 09:00] VITALS: BP 10/55
[2021-05-24] MEDS: PANTOPRAZOLE 40 MG TAB PO SCH (09:23)
[2021-05-24] MEDS: AMIODARONE HCL 200 MG TAB PO SCH ×2 (09:23→21:22)
[2021-05-24] MEDS: CHOLECALCIFEROL (VITD3) 2,000 UNIT CAP/TAB PO SCH (09:24)
[2021-05-24] MEDS: APIXABAN 5 MG TAB PO SCH ×2 (09:24→21:23)
[2021-05-24] MEDS: METOPROLOL TARTRATE 25 MG TAB PO SCH ×2 (09:24→21:23)
[2021-05-24 12:56] VITALS: BP 117/68
[2021-05-24 17:10] VITALS: BP 103/58
[2021-05-24 19:36] VITALS: BP 103/58
[2021-05-24] MEDS: traZODone HCL 50 MG TAB PO SCH (21:22)
[2021-05-24] MEDS: INSULIN LANTUS (GLARGINE) 1 /0.01ml (100units/ml) SC SCH (21:23)
[2021-05-24 22:00] VITALS: BP 101/58
[2021-05-25 05:00] VITALS: BP 113/69
[2021-05-25] MEDS: InsuLIN REG 1unit/0.01ml Soln (100units/ml) SC SCH ×4 (05:34→21:32)
[2021-05-25] MEDS: ACCU-CHEK COMFORT CURVE STRIP VI SCH ×4 (05:34→21:28)
[2021-05-25] MEDS: IPRATROPIUM BROM 0.5 MG/2.5ML INH SOL NEB SCH ×4 (07:24→19:33)
[2021-05-25] MEDS: ACETYLCYSTEINE 10 %(100MG/ML) SOL 4ML NEB SCH ×4 (07:25→18:00)
[2021-05-25] MEDS: LEVALBUTEROL HCL 1.25 MG/3 ML NEB NEB SCH ×4 (07:25→19:33)
[2021-05-25 09:00] VITALS: BP 117/62
[2021-05-25] MEDS: AMIODARONE HCL 200 MG TAB PO SCH ×2 (09:31→21:28)
[2021-05-25] MEDS: APIXABAN 5 MG TAB PO SCH ×2 (09:31→21:27)
[2021-05-25] MEDS: METOPROLOL TARTRATE 25 MG TAB PO SCH ×2 (09:34→21:27)
[2021-05-25] MEDS: CHOLECALCIFEROL (VITD3) 2,000 UNIT CAP/TAB PO SCH (09:35)
[2021-05-25] MEDS: MORPHINE SULFATE INJECTION 2 MG/ML SYRG IV PRN ×2 (09:35→20:07)
[2021-05-25] MEDS: PANTOPRAZOLE 40 MG TAB PO SCH (09:35)
[2021-05-25 12:58] VITALS: BP 110/60
[2021-05-25 16:39] VITALS: BP 109/65
[2021-05-25] MEDS: traZODone HCL 50 MG TAB PO SCH (21:28)
[2021-05-25] MEDS: INSULIN LANTUS (GLARGINE) 1 /0.01ml (100units/ml) SC SCH (21:28)
[2021-05-25 21:58] VITALS: BP 120/65
[2021-05-26] MEDS: ACETYLCYSTEINE 10 %(100MG/ML) SOL 4ML NEB SCH ×4 (00:01→20:21)
[2021-05-26] MEDS: IPRATROPIUM BROM 0.5 MG/2.5ML INH SOL NEB SCH ×4 (00:01→20:21)
[2021-05-26] MEDS: LEVALBUTEROL HCL 1.25 MG/3 ML NEB NEB SCH ×4 (00:01→20:21)
[2021-05-26 04:56] VITALS: BP 107/62
[2021-05-26] MEDS: InsuLIN REG 1unit/0.01ml Soln (100units/ml) SC SCH ×3 (06:00→17:22)
[2021-05-26] MEDS: ACCU-CHEK COMFORT CURVE STRIP VI SCH ×3 (06:28→17:22)
[2021-05-26 08:00] VITALS: BP 105/84
[2021-05-26] MEDS: AMIODARONE HCL 200 MG TAB PO SCH ×2 (09:28→22:04)
[2021-05-26] MEDS: APIXABAN 5 MG TAB PO SCH ×2 (09:28→21:57)
[2021-05-26] MEDS: PANTOPRAZOLE 40 MG TAB PO SCH (09:29)
[2021-05-26] MEDS: CHOLECALCIFEROL (VITD3) 2,000 UNIT CAP/TAB PO SCH (09:29)
[2021-05-26] MEDS: METOPROLOL TARTRATE 25 MG TAB PO SCH ×2 (09:29→22:05)
[2021-05-26 12:00] VITALS: BP 116/61
[2021-05-26 16:00] VITALS: BP 100/58
[2021-05-26] MEDS: MORPHINE SULFATE INJECTION 2 MG/ML SYRG IV PRN (17:25)
[2021-05-26] MEDS: traZODone HCL 50 MG TAB PO SCH (21:57)
[2021-05-26] MEDS: INSULIN LANTUS (GLARGINE) 1 /0.01ml (100units/ml) SC SCH ×2 (21:57→22:00)
[2021-05-26 22:00] VITALS: BP 130/75
[2021-05-27] MEDS: ACCU-CHEK COMFORT CURVE STRIP VI SCH ×4 (00:05→17:40)
[2021-05-27] MEDS: LEVALBUTEROL HCL 1.25 MG/3 ML NEB NEB SCH ×3 (00:08→19:40)
[2021-05-27] MEDS: IPRATROPIUM BROM 0.5 MG/2.5ML INH SOL NEB SCH ×3 (00:08→19:40)
[2021-05-27] MEDS: ACETYLCYSTEINE 10 %(100MG/ML) SOL 4ML NEB SCH ×3 (00:08→19:40)
[2021-05-27 05:00] VITALS: BP 108/58
[2021-05-27] MEDS: InsuLIN REG 1unit/0.01ml Soln (100units/ml) SC SCH ×4 (06:00→17:45)
[2021-05-27 06:08] LABS: Basophils # (auto) 0 10 ^3/uL (0-0.2); Basophils % (auto) 0.5 % (0.0-2.0); Eosinophils # (auto) 0.5 10 ^3/uL (0-0.8); Eosinophils % (auto) 10.9 % (0.0-7.0); Hematocrit 34.6 % (41.0-53.0); Hemoglobin 11.4 g/dL (13.5-17.5); Lymphocytes # (auto) 1.2 10 ^3/uL (0.4-5.4); Lymphocytes % (auto) 24.7 % (10.0-50.0); Mean Corpuscular Hemoglobin 29.1 pg (28.0-32.0); Mean Corpuscular Volume 88.1 fL (80.0-100.0); Monocytes # (auto) 0.6 10 ^3/uL (0-1.3); Neutrophils # (auto) 2.5 10 ^3/uL (1.6-8.6); Neutrophils % (auto) 50.9 % (37.0-80.0); Nucleated Red Blood Cells % 0.2 %; Red Blood Cells 3.93 10^6/uL (4.5-5.90); Red Cell Distribution Width 15.4 % (11.8-14.3); White Blood Cell 4.9 10^3/uL (4.4-10.8)
[2021-05-27 06:27] LABS: BUN/Creatinine Ratio 18.3; Calcium 8.2 mg/dL (8.5-10.1); Potassium 3.4 mmol/L (3.5-5.1)
[2021-05-27 08:58] VITALS: BP 119/57
[2021-05-27] MEDS: APIXABAN 5 MG TAB PO SCH ×2 (09:28→21:12)
[2021-05-27] MEDS: AMIODARONE HCL 200 MG TAB PO SCH ×2 (09:28→09:50)
[2021-05-27] MEDS: METOPROLOL TARTRATE 25 MG TAB PO SCH ×2 (09:29→21:12)
[2021-05-27] MEDS: PANTOPRAZOLE 40 MG TAB PO SCH (09:29)
[2021-05-27] MEDS: CHOLECALCIFEROL (VITD3) 2,000 UNIT CAP/TAB PO SCH (09:30)
[2021-05-27] MEDS ORDERED: POTASSIUM CHL 20 Meq TABLET PO ONE (09:30)
[2021-05-27 13:00] VITALS: BP 105/62
[2021-05-27 17:00] VITALS: BP 110/56
[2021-05-27] MEDS: traZODone HCL 50 MG TAB PO SCH (21:12)
[2021-05-27 22:00] VITALS: BP 117/64
[2021-05-27] MEDS: INSULIN LANTUS (GLARGINE) 1 /0.01ml (100units/ml) SC SCH (22:00)
[2021-05-28] MEDS: ACCU-CHEK COMFORT CURVE STRIP VI SCH ×4 (00:07→18:30)
[2021-05-28] MEDS: LEVALBUTEROL HCL 1.25 MG/3 ML NEB NEB SCH ×4 (00:35→22:07)
[2021-05-28] MEDS: ACETYLCYSTEINE 10 %(100MG/ML) SOL 4ML NEB SCH ×4 (00:35→22:07)
[2021-05-28] MEDS: IPRATROPIUM BROM 0.5 MG/2.5ML INH SOL NEB SCH ×4 (00:35→22:07)
[2021-05-28 01:22] VITALS: BP 121/69
[2021-05-28 05:00] VITALS: BP 109/52
[2021-05-28] MEDS: InsuLIN REG 1unit/0.01ml Soln (100units/ml) SC SCH ×4 (05:58→18:47)
[2021-05-28 09:00] VITALS: BP 117/61
[2021-05-28] MEDS: AMIODARONE HCL 200 MG TAB PO SCH (11:36)
[2021-05-28] MEDS: METOPROLOL TARTRATE 25 MG TAB PO SCH (11:37)
[2021-05-28] MEDS: APIXABAN 5 MG TAB PO SCH ×2 (11:37→21:43)
[2021-05-28] MEDS: CHOLECALCIFEROL (VITD3) 2,000 UNIT CAP/TAB PO SCH (11:38)
[2021-05-28] MEDS: PANTOPRAZOLE 40 MG TAB PO SCH (11:38)
[2021-05-28 13:00] VITALS: BP 98/60
[2021-05-28 17:00] VITALS: BP 92/59
[2021-05-28] MEDS ORDERED: SODIUM CHLORIDE 0.9% 1,000 ML IV ONE (19:30)
[2021-05-28] MEDS: traZODone HCL 50 MG TAB PO SCH (21:43)
[2021-05-28 22:00] VITALS: BP 102/61
[2021-05-28] MEDS: INSULIN LANTUS (GLARGINE) 1 /0.01ml (100units/ml) SC SCH (22:00)
[2021-05-29] MEDS: InsuLIN REG 1unit/0.01ml Soln (100units/ml) SC SCH ×5 (00:16→23:59)
[2021-05-29] MEDS: ACCU-CHEK COMFORT CURVE STRIP VI SCH ×5 (00:18→23:57)
[2021-05-29] MEDS: LEVALBUTEROL HCL 1.25 MG/3 ML NEB NEB SCH ×4 (02:33→18:35)
[2021-05-29] MEDS: IPRATROPIUM BROM 0.5 MG/2.5ML INH SOL NEB SCH ×4 (02:33→18:35)
[2021-05-29] MEDS: ACETYLCYSTEINE 10 %(100MG/ML) SOL 4ML NEB SCH ×4 (02:33→18:35)
[2021-05-29 05:12] VITALS: BP 121/60
[2021-05-29 06:28] LABS: Potassium 3.4 mmol/L (3.5-5.1)
[2021-05-29 06:43] LABS: BUN/Creatinine Ratio 15.9; Calcium 8.3 mg/dL (8.5-10.1)
[2021-05-29 09:00] VITALS: BP 108/63
[2021-05-29] MEDS ORDERED: POTASSIUM CHL 20 Meq TABLET PO ONE ×3 (09:15→11:30)
[2021-05-29] MEDS: PANTOPRAZOLE 40 MG TAB PO SCH (10:06)
[2021-05-29] MEDS: CHOLECALCIFEROL (VITD3) 2,000 UNIT CAP/TAB PO SCH (10:06)
[2021-05-29] MEDS: AMIODARONE HCL 200 MG TAB PO SCH (10:06)
[2021-05-29] MEDS: APIXABAN 5 MG TAB PO SCH ×2 (10:06→21:45)
[2021-05-29 13:00] VITALS: BP 109/61
[2021-05-29 17:00] VITALS: BP 118/61
[2021-05-29] MEDS: traZODone HCL 50 MG TAB PO SCH (21:45)
[2021-05-29 22:00] VITALS: BP 111/59
[2021-05-29] MEDS: INSULIN LANTUS (GLARGINE) 1 /0.01ml (100units/ml) SC SCH (22:03)
[2021-05-30] MEDS: IPRATROPIUM BROM 0.5 MG/2.5ML INH SOL NEB SCH (00:30)
[2021-05-30] MEDS: LEVALBUTEROL HCL 1.25 MG/3 ML NEB NEB SCH (00:30)
[2021-05-30] MEDS: ACETYLCYSTEINE 10 %(100MG/ML) SOL 4ML NEB SCH (00:30)
[2021-05-30 05:01] VITALS: BP 100/54
[2021-05-30] MEDS: ACCU-CHEK COMFORT CURVE STRIP VI SCH ×4 (05:40→23:33)
[2021-05-30] MEDS: InsuLIN REG 1unit/0.01ml Soln (100units/ml) SC SCH ×4 (05:44→23:36)
[2021-05-30] MEDS ORDERED: APIX5TAB PO (08:31)
[2021-05-30] MEDS ORDERED: CHOL1CAP47 PO (08:31)
[2021-05-30] MEDS ORDERED: AMIO200T33 PO (08:32)
[2021-05-30 09:00] VITALS: BP 102/61
[2021-05-30] MEDS: AMIODARONE HCL 200 MG TAB PO SCH (09:13)
[2021-05-30] MEDS: APIXABAN 5 MG TAB PO SCH ×2 (09:13→22:21)
[2021-05-30] MEDS: PANTOPRAZOLE 40 MG TAB PO SCH (09:13)
[2021-05-30] MEDS: CHOLECALCIFEROL (VITD3) 2,000 UNIT CAP/TAB PO SCH (09:14)
[2021-05-30 13:00] VITALS: BP 121/71
[2021-05-30 17:00] VITALS: BP 122/62
[2021-05-30 22:00] VITALS: BP 105/57
[2021-05-30] MEDS: INSULIN LANTUS (GLARGINE) 1 /0.01ml (100units/ml) SC SCH (22:00)
[2021-05-30] MEDS: traZODone HCL 50 MG TAB PO SCH (22:21)
[2021-05-30] MEDS: METOPROLOL TARTRATE 25 MG TAB PO SCH (22:22)
[2021-05-30 23:40] VITALS: BP 105/57
[2021-05-31 04:54] VITALS: BP 124/71
[2021-05-31] MEDS: ACCU-CHEK COMFORT CURVE STRIP VI SCH ×4 (06:06→23:17)
[2021-05-31] MEDS: LEVALBUTEROL HCL 1.25 MG/3 ML NEB NEB PRN (06:16)
[2021-05-31] MEDS: IPRATROPIUM BROM 0.5 MG/2.5ML INH SOL NEB PRN (06:16)
[2021-05-31] MEDS: InsuLIN REG 1unit/0.01ml Soln (100units/ml) SC SCH ×4 (06:18→23:18)
[2021-05-31 09:00] VITALS: BP 117/61
[2021-05-31] MEDS: APIXABAN 5 MG TAB PO SCH ×2 (10:04→21:48)
[2021-05-31] MEDS: AMIODARONE HCL 200 MG TAB PO SCH (10:04)
[2021-05-31] MEDS: METOPROLOL TARTRATE 25 MG TAB PO SCH ×2 (10:05→21:49)
[2021-05-31] MEDS: CHOLECALCIFEROL (VITD3) 2,000 UNIT CAP/TAB PO SCH (10:05)
[2021-05-31] MEDS: PANTOPRAZOLE 40 MG TAB PO SCH (10:05)
[2021-05-31 13:00] VITALS: BP 102/64
[2021-05-31 17:00] VITALS: BP 99/59
[2021-05-31] MEDS: traZODone HCL 50 MG TAB PO SCH (21:48)
[2021-05-31 22:00] VITALS: BP 106/64
[2021-05-31] MEDS: INSULIN LANTUS (GLARGINE) 1 /0.01ml (100units/ml) SC SCH (22:01)
[2021-06-01 05:00] VITALS: BP 104/63
[2021-06-01 06:02] LABS: BUN/Creatinine Ratio 12.7; Calcium 8.6 mg/dL (8.5-10.1); Potassium 3.4 mmol/L (3.5-5.1)
[2021-06-01] MEDS: ACCU-CHEK COMFORT CURVE STRIP VI SCH ×4 (06:06→23:12)
[2021-06-01] MEDS: InsuLIN REG 1unit/0.01ml Soln (100units/ml) SC SCH ×4 (06:15→23:12)
[2021-06-01 06:16] LABS: Basophils # (auto) 0.1 10 ^3/uL (0-0.2); Basophils % (auto) 1.3 % (0.0-2.0); Eosinophils # (auto) 0.1 10 ^3/uL (0-0.8); Eosinophils % (auto) 2.6 % (0.0-7.0); Hematocrit 34.7 % (41.0-53.0); Hemoglobin 11.3 g/dL (13.5-17.5); Lymphocytes # (auto) 1.1 10 ^3/uL (0.4-5.4); Lymphocytes % (auto) 21.4 % (10.0-50.0); Mean Corpuscular Hemoglobin 28.4 pg (28.0-32.0); Mean Corpuscular Hgb Conc. 32.5 g/dL (32.0-36.0); Mean Corpuscular Volume 87.5 fL (80.0-100.0); Monocytes # (auto) 0.7 10 ^3/uL (0-1.3); Monocytes % (auto) 14.1 % (0.0-12.0); Neutrophils # (auto) 3.2 10 ^3/uL (1.6-8.6); Neutrophils % (auto) 60.6 % (37.0-80.0); Nucleated Red Blood Cells % 0.1 %; Red Blood Cells 3.97 10^6/uL (4.5-5.90); Red Cell Distribution Width 17.3 % (11.8-14.3); White Blood Cell 5.3 10^3/uL (4.4-10.8)
[2021-06-01] MEDS: LEVALBUTEROL HCL 1.25 MG/3 ML NEB NEB PRN (06:56)
[2021-06-01] MEDS: IPRATROPIUM BROM 0.5 MG/2.5ML INH SOL NEB PRN (06:56)
[2021-06-01 09:00] VITALS: BP 105/65
[2021-06-01] MEDS: APIXABAN 5 MG TAB PO SCH ×2 (11:16→22:09)
[2021-06-01] MEDS: AMIODARONE HCL 200 MG TAB PO SCH (11:16)
[2021-06-01] MEDS: CHOLECALCIFEROL (VITD3) 2,000 UNIT CAP/TAB PO SCH (11:17)
[2021-06-01] MEDS: METOPROLOL TARTRATE 25 MG TAB PO SCH ×2 (11:17→22:22)
[2021-06-01] MEDS: PANTOPRAZOLE 40 MG TAB PO SCH (11:17)
[2021-06-01 13:00] VITALS: BP 101/64
[2021-06-01] MEDS ORDERED: HYDROcodone-ACET 5/325MG TAB PO PRN (13:15)
[2021-06-01 17:00] VITALS: BP 106/65
[2021-06-01 22:00] VITALS: BP 99/51
[2021-06-01] MEDS: traZODone HCL 50 MG TAB PO SCH (22:10)
[2021-06-01] MEDS: DOCUSATE SOD 100 MG CAP PO SCH (22:10)
[2021-06-01] MEDS: INSULIN LANTUS (GLARGINE) 1 /0.01ml (100units/ml) SC SCH (22:23)
[2021-06-02] MEDS ORDERED: POTASSIUM CHL 20 Meq TABLET PO ONE (03:00)
[2021-06-02 05:00] VITALS: BP 96/53
[2021-06-02 05:41] LABS: Basophils # (auto) 0.1 10 ^3/uL (0-0.2); Basophils % (auto) 1.2 % (0.0-2.0); Eosinophils # (auto) 0.1 10 ^3/uL (0-0.8); Eosinophils % (auto) 2.4 % (0.0-7.0); Hematocrit 31.7 % (41.0-53.0); Hemoglobin 10.7 g/dL (13.5-17.5); Lymphocytes # (auto) 1.4 10 ^3/uL (0.4-5.4); Mean Corpuscular Hemoglobin 29.4 pg (28.0-32.0); Mean Corpuscular Hgb Conc. 33.8 g/dL (32.0-36.0); Mean Corpuscular Volume 86.8 fL (80.0-100.0); Monocytes # (auto) 0.8 10 ^3/uL (0-1.3); Monocytes % (auto) 15.3 % (0.0-12.0); Neutrophils % (auto) 55.1 % (37.0-80.0); Nucleated Red Blood Cells % 0.3 %; Red Blood Cells 3.65 10^6/uL (4.5-5.90); Red Cell Distribution Width 17.3 % (11.8-14.3); White Blood Cell 5.5 10^3/uL (4.4-10.8)
[2021-06-02] MEDS: InsuLIN REG 1unit/0.01ml Soln (100units/ml) SC SCH ×3 (06:00→18:00)
[2021-06-02 06:01] LABS: INR 1.37 (0.9-1.15); Partial Thromboplastin Time 27.1 sec (23.6-33.0)
[2021-06-02 06:09] LABS: Chloride 104 mmol/L (98-107); Potassium 3.6 mmol/L (3.5-5.1); Sodium 136 mmol/L (136-145)
[2021-06-02 06:18] LABS: Anion Gap 3 (5-15); BUN/Creatinine Ratio 18.2; Blood Urea Nitrogen 10 mg/dL (7-18); Carbon Dioxide 29 mmol/L (21-32); Glucose 96 mg/dL (74-106)
[2021-06-02 06:19] LABS: Alanine Aminotransferase 26 U/L (16-61); Albumin 2.4 g/dL (3.4-5.0); Alkaline Phosphatase 58 U/L (45-117); Aspartate Aminotransferase 17 U/L (15-37); Bilirubin, Total 0.4 mg/dL (0.2-1.0); Calcium 8.3 mg/dL (8.5-10.1); GFR African American 189 mL/min; GFR Non-African American 157 mL/min; Magnesium 2.3 mg/dL (1.6-2.6); Phosphorus 3.4 mg/dL (2.5-4.90); Total Protein 5.5 g/dL (6.4-8.2)
[2021-06-02] MEDS: ACCU-CHEK COMFORT CURVE STRIP VI SCH ×3 (06:21→18:04)
[2021-06-02 08:30] VITALS: BP 110/59
[2021-06-02] MEDS: DOCUSATE SOD 100 MG CAP PO SCH ×2 (10:00→22:33)
[2021-06-02] MEDS: AMIODARONE HCL 200 MG TAB PO SCH (10:07)
[2021-06-02] MEDS: METOPROLOL TARTRATE 25 MG TAB PO SCH ×2 (10:08→22:00)
[2021-06-02] MEDS: POTASSIUM CHL 20 Meq TABLET PO SCH ×2 (10:08→22:34)
[2021-06-02] MEDS: CHOLECALCIFEROL (VITD3) 2,000 UNIT CAP/TAB PO SCH (10:08)
[2021-06-02] MEDS: PANTOPRAZOLE 40 MG TAB PO SCH (10:08)
[2021-06-02] MEDS: APIXABAN 5 MG TAB PO SCH ×2 (10:08→22:34)
[2021-06-02 12:30] VITALS: BP 94/55
[2021-06-02 17:00] VITALS: BP 109/64
[2021-06-02 22:00] VITALS: BP 91/53
[2021-06-02] MEDS: traZODone HCL 50 MG TAB PO SCH (22:34)
[2021-06-02] MEDS: INSULIN LANTUS (GLARGINE) 1 /0.01ml (100units/ml) SC SCH (22:41)
[2021-06-03] MEDS: ACCU-CHEK COMFORT CURVE STRIP VI SCH ×4 (00:39→18:04)
[2021-06-03] MEDS: InsuLIN REG 1unit/0.01ml Soln (100units/ml) SC SCH ×4 (00:43→18:00)
[2021-06-03 04:39] VITALS: BP 91/53
[2021-06-03 05:00] VITALS: BP 94/61
[2021-06-03 09:00] VITALS: BP 113/63
[2021-06-03] MEDS ORDERED: FUROSEMIDE 20 MG/2 ML VIAL IV ONE (09:30)
[2021-06-03] MEDS: DOCUSATE SOD 100 MG CAP PO SCH (09:42)
[2021-06-03] MEDS: AMIODARONE HCL 200 MG TAB PO SCH (09:44)
[2021-06-03] MEDS: APIXABAN 5 MG TAB PO SCH (09:45)
[2021-06-03] MEDS: CHOLECALCIFEROL (VITD3) 2,000 UNIT CAP/TAB PO SCH (09:45)
[2021-06-03] MEDS: PANTOPRAZOLE 40 MG TAB PO SCH (09:47)
[2021-06-03] MEDS: METOPROLOL TARTRATE 25 MG TAB PO SCH (09:47)
[2021-06-03] MEDS: POTASSIUM CHL 20 Meq TABLET PO SCH (09:47)
[2021-06-03 13:00] VITALS: BP 103/63
[2021-06-03 17:00] VITALS: BP 105/62
[2021-06-03 22:00] VITALS: BP 103/54
== END 2021-06-03 22:35 | disposition home health service (06) | DRG 207 ==
LOC: EDBD 01:39 → ER 01:43 → TELE 11:18 → TELE-EAST 13:25 → EAST 05-01 15:42 → DOU IN ICU 05-01 17:27 → TELE-EAST 05-22 13:07
PROVIDERS: ADMIT Internal Medicine; ATTEND Internal Medicine
PROC: XW13325 Transfusion of Convalescent Plasma (Nonautologous) into Peripheral Vein, Percutaneous Approach, New Technology Group 5 (ICD-10-PCS; principal; 2021-04-27)
PROC: XW033E5 Introduction of Remdesivir Anti-infective into Peripheral Vein, Percutaneous Approach, New Technology Group 5 (ICD-10-PCS; 2021-04-27)
PROC: 5A09457 Assistance with Respiratory Ventilation, 24-96 Consecutive Hours, Continuous Positive Airway Pressure (ICD-10-PCS; 2021-04-28)
PROC: XW033H5 Introduction of Tocilizumab into Peripheral Vein, Percutaneous Approach, New Technology Group 5 (ICD-10-PCS; 2021-04-30)
PROC: 5A09457 Assistance with Respiratory Ventilation, 24-96 Consecutive Hours, Continuous Positive Airway Pressure (ICD-10-PCS; 2021-04-30)
PROC: 5A1955Z Respiratory Ventilation, Greater than 96 Consecutive Hours (ICD-10-PCS; 2021-05-03)
PROC: 0BH17EZ Insertion of Endotracheal Airway into Trachea, Via Natural or Artificial Opening (ICD-10-PCS; 2021-05-03)
PROC: 02HV33Z Insertion of Infusion Device into Superior Vena Cava, Percutaneous Approach (ICD-10-PCS; 2021-05-03)
PROC: B548ZZA Ultrasonography of Superior Vena Cava, Guidance (ICD-10-PCS; 2021-05-03)
PROC: 05H933Z Insertion of Infusion Device into Right Brachial Vein, Percutaneous Approach (ICD-10-PCS; 2021-05-19)
PROC: B54MZZA Ultrasonography of Right Upper Extremity Veins, Guidance (ICD-10-PCS; 2021-05-19)
DX: U07.1 COVID-19 (principal); J12.82 Pneumonia due to coronavirus disease 2019; N17.0 Acute kidney failure with tubular necrosis; J96.21 Acute and chronic respiratory failure with hypoxia; G93.41 Metabolic encephalopathy; D68.59 Other primary thrombophilia; E44.0 Moderate protein-calorie malnutrition; I48.20 Chronic atrial fibrillation, unspecified; J98.11 Atelectasis; Z99.11 Dependence on respirator [ventilator] status; I42.9 Cardiomyopathy, unspecified; K56.7 Ileus, unspecified; K62.5 Hemorrhage of anus and rectum; J47.0 Bronchiectasis with acute lower respiratory infection; I13.0 Hypertensive heart and chronic kidney disease with heart failure and stage 1 through stage 4 chronic kidney disease, or unspecified chronic kidney disease; I50.42 Chronic combined systolic (congestive) and diastolic (congestive) heart failure; E11.21 Type 2 diabetes mellitus with diabetic nephropathy; E87.6 Hypokalemia; N18.9 Chronic kidney disease, unspecified; I25.10 Atherosclerotic heart disease of native coronary artery without angina pectoris; I48.0 Paroxysmal atrial fibrillation; I44.0 Atrioventricular block, first degree; J98.2 Interstitial emphysema; I49.3 Ventricular premature depolarization; E07.81 Sick-euthyroid syndrome; K59.00 Constipation, unspecified; E66.3 Overweight; Z68.27 Body mass index [BMI] 27.0-27.9, adult; Z88.8 Allergy status to other drugs, medicaments and biological substances
CPT/HCPCS: 36415; 36600; 70450; 71045; 71275; 74018; 80048; 80053; 80076; 80307; 81001; 82040; 82270; 82306; 82378; 82728; 82805; 82962; 83036; 83735; 83880; 84100; 84132; 84439; 84443; 84478; 84484; 85007; 85014; 85018; 85025; 85027; 85379; 85610; 85730; 86141; 86850; 86900; 86901; 87040; 87070; 87077; 87081; 87086; 87088; 87205; 87426; 92610; 93005; 93306; 93970; 94002; 94003; 94640; 94660; 95819; 96365; 96368; 96375; 97110; 97530; C9113; G0378; J0696; J1100; J1450; J1815; J1956; J2001; J2250; J2405; J2543; J2704; J7060; P9047